=== PATIENT | male | born 1950 | race Caucasian/White ===

== ENCOUNTER 2018-10-10 19:15 | Inpatient (IN) | payer MEDICARE, OTHER ==
[~2018-10-10] VITALS: Ht 157.5 cm; Wt 99.8 kg
[2018-10-10] MEDS ORDERED: LISI-607 PO (20:04)
[2018-10-10] MEDS ORDERED: CLOP75TA15 PO (20:04)
[2018-10-10] MEDS ORDERED: CHLO25TA2 PO (20:04)
[2018-10-10] MEDS ORDERED: GLIM4TAB PO (20:04)
[2018-10-10] MEDS ORDERED: APIX5TAB PO (20:04)
[2018-10-10] MEDS ORDERED: OLOP5DRO EACHEYE (20:04)
[2018-10-10] MEDS ORDERED: METF-442 PO (20:04)
[2018-10-10] MEDS ORDERED: RISP0.5T5 PO (20:04)
[2018-10-10] MEDS ORDERED: MELA3TAB70 PO (20:04)
[2018-10-10] MEDS ORDERED: DIVA250T PO (20:04)
[2018-10-10] MEDS ORDERED: CARV6.252 PO (20:04)
[2018-10-10] MEDS ORDERED: ATOR20TA PO (20:04)
[2018-10-10] MEDS ORDERED: ASCO500T9 PO (20:04)
[2018-10-10 20:11] LABS: BASOPHILS % (AUTO) 0.4 % (0.0-2.0); EOSINOPHILS % (AUTO) 4.2 % (0.0-6.0); HEMATOCRIT 45 % (39-51); HEMOGLOBIN 15.4 g/dL (13.5-17.5); LYMPHOCYTES # (AUTO) 1.9 /CMM (0.8-4.8); LYMPHOCYTES % (AUTO) 25.9 % (20.0-44.0); MEAN CORPUSCULAR HGB CONC 35 g/dl (31.0-36.0); MEAN CORPUSCULAR VOLUME 92 fL (80-96); MONOCYTES # (AUTO) 0.5 /CMM (0.1-1.30); MONOCYTES % (AUTO) 7.6 % (2.0-12.0); NEUTROPHILS # (AUTO) 4.5 /CMM (1.8-8.9); NEUTROPHILS % (AUTO) 61.9 % (43.0-81.0); PLATELET COUNT (AUTO) 163 /CMM (150-450); RED BLOOD CELL COUNT(AUTO) 4.85 MIL/uL (4.5-6.0); WHITE BLOOD COUNT (AUTO) 7.3 K/uL (4.3-11.0)
--- NOTE | 2018-10-10 20:20 | NUR ---
ADMIT TO GPS ROOM 220 DX PSYCHOSIS, ADMITTING: MONY, PSYCH: YANCI
[2018-10-10 20:23] LABS: CALCIUM, SERUM 8.9 mg/dL (8.5-10.1); CARBON DIOXIDE 27 mmol/L (21-32); CHLORIDE 98 mmol/L (98-107); GLUCOSE 236 mg/dL (74-106); POTASSIUM 3.8 mmol/L (3.5-5.1); SODIUM SERUM 131 mmol/L (136-145); UREA NITROGEN, BLOOD 27 mg/dL (7-18)
--- NOTE | 2018-10-10 20:24 | NUR ---
BBPA FOR MEDICAL CLEARANCE FOR [facility]CH ADMISSION. PT ALREADY PLACED ON 5150 HOLD. PT C/O CHRONIC R SHOULDER PAIN. PT AAOX3, VSS. DENIES CP, SOB, DIZZINESS, N/V/D @THIS TIME. PT SEEN & EVAL'D BY FRANTZ JAFEF. PT CALM & COOPERATIVE @ THIS TIME. WILL CONT TO MONITOR.
[2018-10-10 20:29] LABS: APPEARANCE,URINE Clear (CLEAR); BILIRUBIN,URINE Negative (NEGATIVE); BLOOD, URINE Negative Ery/uL (NEGATIVE); COLOR,URINE Yellow (YELLOW); KETONES,URINE 15 (NEGATIVE); LEUKOCYTE ESTERASE ,URINE Negative (NEGATIVE); NITRITE, URINE Negative (NEGATIVE); PROTEIN,URINE Negative (NEGATIVE); UGLUCOSE 250 MG/DL mg/dL (NEGATIVE)
[2018-10-10 20:29] LABS: ACETAMINOPHEN 5 ug/ml (10-30); ALANINE AMINOTRANSFERASE 26 U/L (12-78); ALBUMIN 3.4 g/dL (3.4-5.0); ALCOHOL, BLOOD < 3 mg/dL (0-0); ALKALINE PHOSPHATASE 89 U/L (46-116); ASPARTATE AMINOTRANSFERASE 11 U/L (15-37); BILIRUBIN,DIRECT 0.1 mg/dL (0.0-0.2); BILIRUBIN,TOTAL 0.5 mg/dL (0.2-1.0); TOTAL PROTEIN, SERUM 6.8 g/dL (6.4-8.2)
[2018-10-10 20:30] LABS: SALICYLATE 1.5 mg/dL (2.8-20.0)
--- NOTE | 2018-10-10 20:54 | NUR ---
REPORT GIVEN TO JOY VALLEJO FOR CONT OF CARE.
[2018-10-10 21:13] VITALS: BP 139/69
[2018-10-10] MEDS ORDERED: MAG HYDROX/AL HYDROX/SIMETH 30 ML UDC PO PRN (21:30)
[2018-10-10] MEDS ORDERED: ACETAMINOPHEN 325 MG TABLET PO PRN (21:30)
[2018-10-10] MEDS ORDERED: MAGNESIUM HYDROXIDE 30 ML UDC PO PRN (21:30)
--- NOTE | 2018-10-11 05:31 | NUR ---
ADMITTED THIS 68 YEARS OLD MALE FROM [facility] DUE TI INCREASED AGITATIONS TOWARDS STAFF,AND AGGRESSIVE PATIENT DENIES ANY PAIN OR AGITATIONS AT THIS TIME ,CALM AND COOPERATIVE SKIN ASSESSMENT IS DONE SKIN IS CLEAR, AND INTACT, NO OPEN WOUND NOTED, VSS, NO RESPIRATORY DISTRESS NOTED ON ROOM AIR, BREATHING EVEN UNLABORED WILL CONTINUES TO MONITOR THE PATIENT EVERY 15 MINS FOR SAFETY AND FALL .
[2018-10-11] MEDS: BLOOD SUGAR DIAGNOSTIC 1 EACH STRIP IN SCH ×3 (06:00→18:08)
[2018-10-11 08:00] VITALS: BP 126/86
[2018-10-11 08:06] LABS: CREATININE 0.8 mg/dL (0.6-1.3)
[2018-10-11 08:07] LABS: CHOLESTEROL 123 mg/dL (<200); HDL CHOLESTEROL 47 mg/dL (40-60); LDL 71 mg/dL (0-99); TRIGLYCERIDES 95 mg/dL (30-150)
[2018-10-11] MEDS ORDERED: MULT-447 PO (08:10)
[2018-10-11] MEDS ORDERED: OXYM30MI BNOSTRILS (08:10)
--- NOTE | 2018-10-11 13:56 | NUR ---
CORDELIA contacted [facility] Address: [address], [place] [address] and spoke with Joseph, credit coordinator who stated pt was not on a bed hold due to pt not having Medical for assisted placement and thus has been accruing daily fees and has a co-payment due and stated he did not know if they would be able to take pt back. CORDELIA informed him that there was a Medicare return agreement signed by the facility before pt was transferred to [facility]. Joseph then stated that they would accept pt with medical clearance. CORDELIA informed him that once pt is stable for discharge CORDELIA will fax [phone] medical information and clearance to facility. Joseph agreed. Addendum: 10/11/18 at 1407 by EMIL STOREY Joseph also stated that pts family; kati Gupta [phone] and daughter were not involved with pts care.
--- NOTE | 2018-10-11 14:07 | NUR ---
SW contacted pts kati Gupta [phone] and left voicemail for callback.
--- NOTE | 2018-10-11 16:15 | NUR ---
SW received patient return agreement letter from [facility] sighned by long term care administrator Cirilo Patel [phone].
[2018-10-11 16:17] VITALS: BP 108/67
[2018-10-11] MEDS: risperiDONE 1 MG TABLET PO SCH (17:09)
[2018-10-11] MEDS: DIVALPROEX SODIUM 250 MG TABLET.DR PO SCH ×2 (17:10→21:02)
[2018-10-11] MEDS ORDERED: DEXTROSE 50%-WATER 50 ML DISP.SYRIN IV PRN (18:00)
[2018-10-11] MEDS: INSULIN REGULAR, HUMAN 100 UNIT/ML 3 ML VIAL SQ PRN (18:47)
[2018-10-11 20:22] VITALS: BP 130/74
[2018-10-11] MEDS: BLOOD SUGAR DIAGNOSTIC 1 EACH STRIP VI SCH (21:10)
[2018-10-11] MEDS: *INSULIN REGULAR(HUMULIN R)HUM 100 UNIT/ML VIAL SQ PRN (21:15)
[2018-10-11] MEDS: TEMAZEPAM 7.5 MG CAPSULE PO PRN (21:35)
[2018-10-12] MEDS: BLOOD SUGAR DIAGNOSTIC 1 EACH STRIP IN SCH ×2 (00:07→06:29)
[2018-10-12] MEDS: LORAZEPAM 0.5 MG TABLET PO PRN ×2 (04:24→21:58)
[2018-10-12] MEDS: INSULIN REGULAR, HUMAN 100 UNIT/ML 3 ML VIAL SQ PRN ×3 (06:40→18:10)
--- NOTE | 2018-10-12 07:27 | NUR ---
GPS-RN NOTES: PATIENT REFUSED BLOOD DRAW THIS MORNING, DESPITE EDUCATION. WILL TRY TO OFFER IT AGAIN LATER. ENDORSED TO THE ONCOMING SHIFT ACCORDINGLY.
[2018-10-12] MEDS: BLOOD SUGAR DIAGNOSTIC 1 EACH STRIP VI SCH ×4 (07:57→21:30)
[2018-10-12 08:00] VITALS: BP 119/57
--- NOTE | 2018-10-12 08:00 | NUR ---
NURSING NOTE: ACCMOISES DONE, BS 223, NO COVERAGE GIVEN DUE TO NIGHT RN ADMINISTERING 6 UNITS OF REGULAR INSULIN PER SLIDING SCALE THIS MORNING. WILL CONTINUE TO MONITOR.
--- NOTE | 2018-10-12 08:21 | NUR ---
WOUND CARE CONSULT: PT PRESENTS WITH DRY FLAKY SKIN TO LOWER LEGS, EDEMA TO RT LOWER LEG AND ITCHING REDNESS TO GROIN AND PERINEAL AREAS, PRESENT ON ADMISSION. DEFER TO MD FOR RT LOWER LEG EDEMA. RECOMMENDATIONS MADE FOR SKIN CARE AND PROTECTION. DISCUSSED WITH NURSING STAFF. PT IS CONTINENT AND AMBULATORY. CURRENT CHARLEY SCORE IS 20. WILL SEE PRN. MD IN AGREEMENT WITH PLAN OF CARE. Addendum: 10/12/18 at 0823 by ALVIN GOODRICH WNDNU Amended: Links added.
[2018-10-12] MEDS ORDERED: MINERAL OIL/PETROLATUM,WHITE 120 GM JAR TP PRN (08:30)
[2018-10-12] MEDS ORDERED: Z GUARD REMEDY 2 OZ OINT TP PRN (08:30)
[2018-10-12] MEDS: risperiDONE 1 MG TABLET PO SCH ×2 (08:57→16:18)
[2018-10-12] MEDS: DIVALPROEX SODIUM 250 MG TABLET.DR PO SCH ×3 (08:57→21:29)
[2018-10-12] MEDS: CLOTRIMAZOLE 1% 15 GM TUBE TP SCH ×2 (09:24→16:21)
--- NOTE | 2018-10-12 10:36 | NUR ---
INITIAL DISCHARGE PLAN: Patient will return to [facility] Address: [address] [facility], [place] [address] . CORDELIA spoke with Joseph, city wellness coordinator who stated pt was not on a bed hold due to pt not having Medical for [place] [facility] placement and thus has been accruing daily fees and has a co-payment due and stated he did not know if they would be able to take pt back. CORDELIA informed him that there was a Medicare return agreement signed by the order entry administrator before pt was transferred to [facility]. Joseph then stated that they would accept pt with medical clearance. CORDELIA will help form a safe and proper discharge in collaboration with facility and MD.
--- NOTE | 2018-10-12 10:37 | NUR ---
SW contacted pts kati Gupta [phone] and left voicemail for callback.
--- NOTE | 2018-10-12 13:34 | NUR ---
Group note: Pt attended a group session on 10/12/18 at 11AM discussing the topic of what they are looking forward to once they get discharged from the hospital. S: Pt stated that he is looking forward to being free once again. O: Pt was present during the group session and was cooperative. Pt appeared to be in a euthymic mood and presented with a calm affect. Pt appeared to be comfortable and spoke openly about his life. A: Pt understood that he is in this situation because he was not behaving appropriately but now he has to own up to it and make changes. Pt stated that he will be free eventually and then he will be able to know how he should and should not behave due to the consequences. P: Pt will continue milieu treatment and medication stabilization.
[2018-10-12 16:00] VITALS: BP 117/62
[2018-10-12 20:25] VITALS: BP 121/64
[2018-10-12] MEDS: *INSULIN REGULAR(HUMULIN R)HUM 100 UNIT/ML VIAL SQ PRN (21:51)
[2018-10-12] MEDS: TEMAZEPAM 7.5 MG CAPSULE PO PRN (22:08)
[2018-10-13 08:00] VITALS: BP 124/59
[2018-10-13] MEDS: BLOOD SUGAR DIAGNOSTIC 1 EACH STRIP VI SCH ×4 (08:20→21:10)
[2018-10-13] MEDS: DIVALPROEX SODIUM 250 MG TABLET.DR PO SCH ×3 (09:13→21:09)
[2018-10-13] MEDS: risperiDONE 1 MG TABLET PO SCH ×3 (09:28→17:24)
[2018-10-13] MEDS: CLOTRIMAZOLE 1% 15 GM TUBE TP SCH ×2 (09:29→17:24)
[2018-10-13] MEDS ORDERED: BENZTROPINE MESYLATE (1 MG) 1 MG TABLET PO SCH (11:30)
[2018-10-13] MEDS ORDERED: risperiDONE 0.25 MG TABLET PO SCH (11:30)
[2018-10-13] MEDS: BENZTROPINE MESYLATE (1 MG) 1 MG TABLET PO SCH ×2 (12:31→17:23)
[2018-10-13] MEDS: INSULIN REGULAR, HUMAN 100 UNIT/ML 3 ML VIAL SQ PRN (12:57)
[2018-10-13] MEDS ORDERED: busPIRone 5 MG TABLET PO SCH (13:00)
--- NOTE | 2018-10-13 13:04 | NUR ---
Patients blood sugar 473 patient given insulin 15 units as per order, Dr Méndez made aware new order Metformin 500mg po bid entered.
--- NOTE | 2018-10-13 13:08 | NUR ---
DR. CLARK ORDERED METFORMIN 500 MG PO TO THE PRIMARY NURSE AND ORDERED ENTERED.
[2018-10-13 16:06] VITALS: BP 111/61
[2018-10-13] MEDS: METFORMIN 500 MG TABLET PO SCH (17:24)
[2018-10-13] MEDS: *INSULIN REGULAR(HUMULIN R)HUM 100 UNIT/ML VIAL SQ PRN ×2 (17:27→21:10)
--- NOTE | 2018-10-13 18:47 | NUR ---
0800 ASSUMED CARE OF PATIENT. PATIENTS AM BLOOD SUGAR 198 PATIENT GIVEN 6 UNITS OF INSULIN ACCORDING TO SLIDING SCALE. PATIENTS BLOOD SUGAR [address] CLARK WAS INFORMED ABOUT THE OVER 400 BLOOD SUGAR ACCORDING TO PROTOCOL. RECHECKED THE BLOOD SUGAR AN HOUR LATER AND IT WAS 397. DR CLARK CALLED REGARDING THE NEW BLOOD SUGAR OF 397 AND THE INFORMATION THAT DIABETIC HOME MEDICATIONS HAVE NOT BEEN ACKNOWLEDGED. DR CLARK INFORMED. BEFORE DINNER BLOOD SUGAR IS NOW 276 AND THE FIRST DOSE OF METFORMIN 500MG PO HAS BEEN GIVEN. WILL CONTINUE TO MONITOR
--- NOTE | 2018-10-13 18:50 | NUR ---
PATIENT HAS BEEN DISPLAYING INAPPROPRIATE BEHAVIORS THROUGHOUT SHIFT. BEING AGGRESSIVE AND AGGITATED WITH HIS ROOM MATE. PATIENT ABLE TO REDIRECT.
[2018-10-13 20:00] VITALS: BP 127/77
[2018-10-13] MEDS: TEMAZEPAM 7.5 MG CAPSULE PO PRN (21:09)
[2018-10-14] MEDS: BLOOD SUGAR DIAGNOSTIC 1 EACH STRIP VI SCH ×4 (07:27→21:34)
[2018-10-14] MEDS: INSULIN REGULAR, HUMAN 100 UNIT/ML 3 ML VIAL SQ PRN ×3 (07:42→17:17)
[2018-10-14 08:00] VITALS: BP 121/59
[2018-10-14] MEDS: METFORMIN 500 MG TABLET PO SCH ×2 (08:11→16:28)
[2018-10-14] MEDS: risperiDONE 1 MG TABLET PO SCH ×3 (08:11→16:26)
[2018-10-14] MEDS: DIVALPROEX SODIUM 250 MG TABLET.DR PO SCH ×3 (08:11→21:34)
[2018-10-14] MEDS: BENZTROPINE MESYLATE (1 MG) 1 MG TABLET PO SCH ×2 (08:12→16:26)
[2018-10-14] MEDS: CLOTRIMAZOLE 1% 15 GM TUBE TP SCH ×2 (10:26→17:05)
[2018-10-14 16:00] VITALS: BP 125/67
[2018-10-14] MEDS: APIXABAN 5 MG TABLET PO SCH (16:26)
[2018-10-14] MEDS: CARVEDILOL 6.25 MG TABLET PO SCH (16:27)
[2018-10-14 20:00] VITALS: BP 106/60
[2018-10-14] MEDS: OLOPATADINE HCL 0.1% OPHTH BOTTLE EACHEYE SCH (20:35)
[2018-10-14] MEDS: ATORVASTATIN 10 MG TABLET PO SCH (21:33)
[2018-10-14] MEDS: *INSULIN REGULAR(HUMULIN R)HUM 100 UNIT/ML VIAL SQ PRN (21:38)
[2018-10-14] MEDS: LORAZEPAM 0.5 MG TABLET PO PRN (22:18)
[2018-10-15] MEDS: BLOOD SUGAR DIAGNOSTIC 1 EACH STRIP VI SCH ×4 (07:40→21:23)
[2018-10-15] MEDS: INSULIN REGULAR, HUMAN 100 UNIT/ML 3 ML VIAL SQ PRN ×3 (07:41→17:21)
[2018-10-15 08:00] VITALS: BP 124/55
[2018-10-15] MEDS: APIXABAN 5 MG TABLET PO SCH ×2 (08:52→16:17)
[2018-10-15] MEDS: risperiDONE 1 MG TABLET PO SCH ×3 (08:53→16:16)
[2018-10-15] MEDS: DIVALPROEX SODIUM 250 MG TABLET.DR PO SCH ×3 (08:53→21:00)
[2018-10-15] MEDS: METFORMIN 500 MG TABLET PO SCH ×2 (08:53→16:16)
[2018-10-15] MEDS: BENZTROPINE MESYLATE (1 MG) 1 MG TABLET PO SCH ×2 (08:53→16:15)
[2018-10-15] MEDS: LISINOPRIL (5MG) 5 MG TABLET PO SCH (08:54)
[2018-10-15] MEDS: CARVEDILOL 6.25 MG TABLET PO SCH ×2 (08:54→17:19)
[2018-10-15] MEDS: OLOPATADINE HCL 0.1% OPHTH BOTTLE EACHEYE SCH ×2 (08:55→16:17)
[2018-10-15] MEDS: MULTIVITAMIN/LUTEIN/MINERALS 1 TAB PO SCH (08:58)
[2018-10-15] MEDS: ASCORBIC ACID 500 MG TABLET PO SCH (08:59)
[2018-10-15] MEDS: GLIMEPIRIDE 4 MG TABLET PO SCH (08:59)
[2018-10-15] MEDS: CLOPIDOGREL BISULFATE 75 MG TABLET PO SCH (08:59)
[2018-10-15] MEDS: CLOTRIMAZOLE 1% 15 GM TUBE TP SCH ×2 (12:28→16:17)
[2018-10-15] MEDS: LORAZEPAM 0.5 MG TABLET PO PRN (12:49)
--- NOTE | 2018-10-15 12:51 | NUR ---
GPS RN NOTE: PT ANXIOUS ATIVAN GIVEN PER ORDER WILL CONTINUE MONITORING.
[2018-10-15 16:00] VITALS: BP 136/80
[2018-10-15 20:00] VITALS: BP 146/72
[2018-10-15] MEDS: ATORVASTATIN 10 MG TABLET PO SCH (21:00)
[2018-10-15] MEDS: *INSULIN REGULAR(HUMULIN R)HUM 100 UNIT/ML VIAL SQ PRN (21:28)
[2018-10-16] MEDS: LORAZEPAM 0.5 MG TABLET PO PRN (04:29)
[2018-10-16] MEDS: BLOOD SUGAR DIAGNOSTIC 1 EACH STRIP VI SCH ×4 (07:47→21:29)
[2018-10-16] MEDS: INSULIN REGULAR, HUMAN 100 UNIT/ML 3 ML VIAL SQ PRN ×3 (07:52→17:17)
[2018-10-16 08:00] VITALS: BP 110/63
[2018-10-16] MEDS: OLOPATADINE HCL 0.1% OPHTH BOTTLE EACHEYE SCH ×2 (08:19→16:11)
[2018-10-16] MEDS: APIXABAN 5 MG TABLET PO SCH ×2 (08:21→16:10)
[2018-10-16] MEDS: BENZTROPINE MESYLATE (1 MG) 1 MG TABLET PO SCH ×2 (08:21→16:09)
[2018-10-16] MEDS: MULTIVITAMIN/LUTEIN/MINERALS 1 TAB PO SCH (08:22)
[2018-10-16] MEDS: DIVALPROEX SODIUM 250 MG TABLET.DR PO SCH ×3 (08:22→21:28)
[2018-10-16] MEDS: CLOPIDOGREL BISULFATE 75 MG TABLET PO SCH (08:22)
[2018-10-16] MEDS: METFORMIN 500 MG TABLET PO SCH ×2 (08:23→16:09)
[2018-10-16] MEDS: ASCORBIC ACID 500 MG TABLET PO SCH (08:23)
[2018-10-16] MEDS: risperiDONE 1 MG TABLET PO SCH ×4 (08:24→16:20)
[2018-10-16] MEDS: GLIMEPIRIDE 4 MG TABLET PO SCH (08:24)
[2018-10-16] MEDS: LISINOPRIL (5MG) 5 MG TABLET PO SCH (08:34)
[2018-10-16] MEDS: CARVEDILOL 6.25 MG TABLET PO SCH ×2 (08:34→16:19)
[2018-10-16] MEDS: CLOTRIMAZOLE 1% 15 GM TUBE TP SCH ×2 (08:37→17:14)
[2018-10-16 16:00] VITALS: BP 94/54
[2018-10-16 20:23] VITALS: BP 105/54
[2018-10-16] MEDS: ATORVASTATIN 10 MG TABLET PO SCH (21:27)
[2018-10-16] MEDS: *INSULIN REGULAR(HUMULIN R)HUM 100 UNIT/ML VIAL SQ PRN (21:33)
[2018-10-17 07:24] LABS: CALCIUM, SERUM 8.6 mg/dL (8.5-10.1); CREATININE 0.7 mg/dL (0.6-1.3); POTASSIUM 3.9 mmol/L (3.5-5.1)
[2018-10-17] MEDS: BLOOD SUGAR DIAGNOSTIC 1 EACH STRIP VI SCH ×4 (07:30→21:24)
[2018-10-17 08:00] VITALS: BP 123/66
[2018-10-17] MEDS: OLOPATADINE HCL 0.1% OPHTH BOTTLE EACHEYE SCH ×2 (09:00→17:00)
[2018-10-17] MEDS: APIXABAN 5 MG TABLET PO SCH ×2 (09:00→17:38)
[2018-10-17] MEDS: CLOTRIMAZOLE 1% 15 GM TUBE TP SCH ×2 (09:00→17:00)
[2018-10-17] MEDS: GLIMEPIRIDE 4 MG TABLET PO SCH (09:00)
[2018-10-17] MEDS: METFORMIN 500 MG TABLET PO SCH ×2 (09:00→17:29)
[2018-10-17] MEDS: INSULIN REGULAR, HUMAN 100 UNIT/ML 3 ML VIAL SQ PRN ×3 (09:12→17:51)
[2018-10-17] MEDS: CLOPIDOGREL BISULFATE 75 MG TABLET PO SCH (09:13)
[2018-10-17] MEDS: LISINOPRIL (5MG) 5 MG TABLET PO SCH (09:13)
[2018-10-17] MEDS: ASCORBIC ACID 500 MG TABLET PO SCH (09:13)
[2018-10-17] MEDS: DIVALPROEX SODIUM 250 MG TABLET.DR PO SCH ×3 (09:14→21:23)
[2018-10-17] MEDS: MULTIVITAMIN/LUTEIN/MINERALS 1 TAB PO SCH (09:14)
[2018-10-17] MEDS: BENZTROPINE MESYLATE (1 MG) 1 MG TABLET PO SCH ×2 (09:14→17:28)
[2018-10-17] MEDS: risperiDONE 1 MG TABLET PO SCH ×3 (09:14→17:38)
[2018-10-17] MEDS: CARVEDILOL 6.25 MG TABLET PO SCH ×2 (09:14→17:00)
[2018-10-17 16:00] VITALS: BP 110/65
[2018-10-17 20:00] VITALS: BP 101/66
[2018-10-17] MEDS: ATORVASTATIN 10 MG TABLET PO SCH (21:23)
[2018-10-17] MEDS: *INSULIN REGULAR(HUMULIN R)HUM 100 UNIT/ML VIAL SQ PRN (21:29)
[2018-10-17] MEDS: TEMAZEPAM 7.5 MG CAPSULE PO PRN (22:42)
[2018-10-17] MEDS: LORAZEPAM 0.5 MG TABLET PO PRN (23:46)
[2018-10-18] MEDS: BLOOD SUGAR DIAGNOSTIC 1 EACH STRIP VI SCH ×4 (07:30→21:33)
[2018-10-18 08:00] VITALS: BP 135/98
[2018-10-18] MEDS: OLOPATADINE HCL 0.1% OPHTH BOTTLE EACHEYE SCH ×2 (09:00→17:58)
[2018-10-18] MEDS: CLOTRIMAZOLE 1% 15 GM TUBE TP SCH ×2 (09:00→17:59)
[2018-10-18] MEDS: ASCORBIC ACID 500 MG TABLET PO SCH (09:31)
[2018-10-18] MEDS: METFORMIN 500 MG TABLET PO SCH ×2 (09:31→17:57)
[2018-10-18] MEDS: GLIMEPIRIDE 4 MG TABLET PO SCH (09:31)
[2018-10-18] MEDS: CLOPIDOGREL BISULFATE 75 MG TABLET PO SCH (09:31)
[2018-10-18] MEDS: DIVALPROEX SODIUM 250 MG TABLET.DR PO SCH ×4 (09:32→21:33)
[2018-10-18] MEDS: CARVEDILOL 6.25 MG TABLET PO SCH ×3 (09:32→17:57)
[2018-10-18] MEDS: BENZTROPINE MESYLATE (1 MG) 1 MG TABLET PO SCH ×3 (09:32→17:56)
[2018-10-18] MEDS: LISINOPRIL (5MG) 5 MG TABLET PO SCH (09:33)
[2018-10-18] MEDS: APIXABAN 5 MG TABLET PO SCH ×3 (09:33→17:58)
[2018-10-18] MEDS: risperiDONE 1 MG TABLET PO SCH ×3 (09:46→17:00)
[2018-10-18] MEDS: MULTIVITAMIN/LUTEIN/MINERALS 1 TAB PO SCH (09:46)
--- NOTE | 2018-10-18 11:44 | NUR ---
CORDELIA contacted [facility] Address: [address] [place] [address] and spoke with Anneliese, borough coordinator and informed her pt was being discharged back tho the facility tomorrow Wednesday10/19/18. Val agreed and requested clinical information. CORDELIA faxed clinicals to [phone].
[2018-10-18] MEDS: INSULIN REGULAR, HUMAN 100 UNIT/ML 3 ML VIAL SQ PRN ×2 (12:58→17:40)
[2018-10-18 16:00] VITALS: BP 109/59
[2018-10-18 20:54] VITALS: BP 104/59
[2018-10-18] MEDS: ATORVASTATIN 10 MG TABLET PO SCH (21:33)
[2018-10-18] MEDS: *INSULIN REGULAR(HUMULIN R)HUM 100 UNIT/ML VIAL SQ PRN (21:39)
[2018-10-19] MEDS: TEMAZEPAM 7.5 MG CAPSULE PO PRN (01:15)
[2018-10-19] MEDS: BLOOD SUGAR DIAGNOSTIC 1 EACH STRIP VI SCH (07:44)
[2018-10-19 08:00] VITALS: BP 107/53
[2018-10-19] MEDS: CLOPIDOGREL BISULFATE 75 MG TABLET PO SCH (08:07)
[2018-10-19] MEDS: DIVALPROEX SODIUM 250 MG TABLET.DR PO SCH (08:07)
[2018-10-19] MEDS: METFORMIN 500 MG TABLET PO SCH (08:07)
[2018-10-19] MEDS: GLIMEPIRIDE 4 MG TABLET PO SCH (08:07)
[2018-10-19] MEDS: BENZTROPINE MESYLATE (1 MG) 1 MG TABLET PO SCH (08:07)
[2018-10-19] MEDS: MULTIVITAMIN/LUTEIN/MINERALS 1 TAB PO SCH (08:07)
[2018-10-19] MEDS: LISINOPRIL (5MG) 5 MG TABLET PO SCH ×2 (08:07→09:00)
[2018-10-19] MEDS: CARVEDILOL 6.25 MG TABLET PO SCH (08:08)
[2018-10-19] MEDS: ASCORBIC ACID 500 MG TABLET PO SCH (08:08)
[2018-10-19] MEDS: risperiDONE 1 MG TABLET PO SCH (08:08)
[2018-10-19] MEDS: OLOPATADINE HCL 0.1% OPHTH BOTTLE EACHEYE SCH (08:12)
[2018-10-19] MEDS: APIXABAN 5 MG TABLET PO SCH (08:12)
[2018-10-19] MEDS: CLOTRIMAZOLE 1% 15 GM TUBE TP SCH (08:17)
[2018-10-19 09:00] VITALS: BP 107/53
--- NOTE | 2018-10-19 12:05 | NUR ---
NURSING DISCHARGE NOTE: PT WAS DISCHARGED TODAY AT 1200 TO [facility] ([facility]) [address] [place] [address]. VIA AMBULANCE. PT LEFT THE UNIT VIA GURNEY ACCOMPANIED BY 2 APPLIED COMPUTER SCIENCE PROFESSOR. PT IS A&OX3, CALM, COOPERATIVE, LABILE, DEMANDING AT TIMES, REDIRECTABLE, DENIES SI/HI AT THE TIME OF DISCHARGE. PT WAS COOPERATIVE WITH DISCHARGE PROCESS AND HAS SIGNED ALL PAPERWORK. PT REFUSED SKIN ASSESSMENT AND PICTURES TO BE TAKEN. VS: 124/66, 74, 18, 95%RA, 0/10 PAIN. NO S/S OF DISTRESS NOTED. DISCHARGE ORDER WAS GIVEN BY DR. PETE AND PT IS MEDICALLY STABLE FOR DISCHARGE PER DR. PACHECO. REPORT WAS GIVEN TO JOY MARTINEZ AT [phone]. ALL BELONGINGS WERE RETURNED TO PT AND PT HAS SIGNED THE PAPERWORK.
--- NOTE | 2018-10-19 13:54 | NUR ---
Discharge Note: Pt discharged on Wednesday10/19/18 back to [facility] ([facility]). Pt discharged at 11:30am via [facility] trip #[id number]. Pt has no family to notify. Upon discharge, the pt appeared to be in a euthymic mood and presented with a calm affect. Pt stated that he is excited to return to the facility because he made friends there that he misses. Pt denied both suicidal and homicidal ideation as well as visual and auditory hallucinations. Pt will be under the care of his psychiatrist, Dr. Vitaly Mcfadden, located at [address] [place] [address] [phone] and his mobile sales technician, Dr. Carlton Trujillo, [place] [address] [place] [address]; .
== END 2018-10-19 12:00 | DRG 885 ==
LOC: ER 19:17 → GPS 20:26
PROVIDERS: ADMIT Psychiatry & Neurology Psychiatry; ATTEND Psychiatry & Neurology Psychiatry
DX: F29 Unspecified psychosis not due to a substance or known physiological condition (principal); N17.9 Acute kidney failure, unspecified; E11.65 Type 2 diabetes mellitus with hyperglycemia; E87.1 Hypo-osmolality and hyponatremia; F03.91 Unspecified dementia, unspecified severity, with behavioral disturbance; I10 Essential (primary) hypertension; F39 Unspecified mood [affective] disorder; E11.51 Type 2 diabetes mellitus with diabetic peripheral angiopathy without gangrene; E11.610 Type 2 diabetes mellitus with diabetic neuropathic arthropathy; Z79.84 Long term (current) use of oral hypoglycemic drugs; E86.1 Hypovolemia
CPT/HCPCS: 36415; 80048-TC; 80061-TC; 80076-TC; 80305; 81000-TC; 82565-TC; 82962-TC; 84484-TC; 85025-TC; 87081-TC; G0480; J1815

== ENCOUNTER 2018-11-29 15:58 | Emergency (ER) | payer MEDICARE, MEDICAID ==
[~2018-11-29] VITALS: Ht 152.4 cm; Wt 83.9 kg
[~2018-11-29 15:58] MED LIST: APIX5TAB PO; ASCO500T9 PO; ATOR20TA PO; CARV6.252 PO; CHLO25TA2 PO; CLOP75TA15 PO; GLIM4TAB PO; LISI-607 PO; METF-442 PO; MULT-447 PO; OLOP5DRO EACHEYE; OXYM30MI BNOSTRILS; RISP0.5T5 PO
--- NOTE | 2018-11-29 16:27 | NUR ---
MARILYN, FROM SNF INCREASE AGITATION AND NOT TAKING HIS MEDS SINCE LAST NIGHT, TO ER BED 14, HOOKED TO MONITOR. AWAITING MD ORTEGA
--- NOTE | 2018-11-29 16:28 | NUR ---
SEEN BY FRANTZ MESSINA
[2018-11-29 16:43] LABS: BASOPHILS % (AUTO) 0.5 % (0.0-2.0); EOSINOPHILS % (AUTO) 2.8 % (0.0-6.0); HEMATOCRIT 47 % (39-51); LYMPHOCYTES # (AUTO) 1.8 /CMM (0.8-4.8); LYMPHOCYTES % (AUTO) 29.7 % (20.0-44.0); MEAN CORPUSCULAR HGB CONC 34 g/dl (31.0-36.0); MEAN CORPUSCULAR VOLUME 91 fL (80-96); MONOCYTES # (AUTO) 0.5 /CMM (0.1-1.30); MONOCYTES % (AUTO) 8.6 % (2.0-12.0); NEUTROPHILS # (AUTO) 3.6 /CMM (1.8-8.9); NEUTROPHILS % (AUTO) 58.4 % (43.0-81.0); PLATELET COUNT (AUTO) 173 /CMM (150-450); RED BLOOD CELL COUNT(AUTO) 5.12 MIL/uL (4.5-6.0); WHITE BLOOD COUNT (AUTO) 6.1 K/uL (4.3-11.0)
--- NOTE | 2018-11-29 16:50 | NUR ---
PER FRANTZ MESSINA, PT IS MEDICALLY CLEAR TO GO BACK TO [facility]
[2018-11-29 16:54] LABS: CALCIUM, SERUM 8.9 mg/dL (8.5-10.1); CARBON DIOXIDE 26 mmol/L (21-32); CHLORIDE 101 mmol/L (98-107); CREATININE 0.9 mg/dL (0.6-1.3); GLUCOSE 261 mg/dL (74-106); POTASSIUM 4.2 mmol/L (3.5-5.1); SODIUM SERUM 135 mmol/L (136-145); UREA NITROGEN, BLOOD 16 mg/dL (7-18)
[2018-11-29 17:03] LABS: ALANINE AMINOTRANSFERASE 16 U/L (12-78); ALBUMIN 3.6 g/dL (3.4-5.0); ALKALINE PHOSPHATASE 89 U/L (46-116); ASPARTATE AMINOTRANSFERASE 11 U/L (15-37); BILIRUBIN,DIRECT 0.1 mg/dL (0.0-0.2); BILIRUBIN,TOTAL 0.6 mg/dL (0.2-1.0); TOTAL PROTEIN, SERUM 7.2 g/dL (6.4-8.2)
[2018-11-29 17:04] LABS: ACETAMINOPHEN < 2 ug/ml (10-30); ALCOHOL, BLOOD < 3 mg/dL (0-0); SALICYLATE < 2.8 mg/dL (2.8-20.0)
--- NOTE | 2018-11-29 17:04 | NUR ---
CALLED [facility] FOR TRANSPORT ETA 1999 WAS GIVEN. TRIP#[id number]
--- NOTE | 2018-11-29 17:32 | NUR ---
PT IN WHEECHAIR, NO AGITATION NOTED. HOOKED TO MONITOR, WILL CONTINUE TO MONITOR
--- NOTE | 2018-11-29 19:57 | NUR ---
REPORT GIVEN TO FLOYD HAMILTON OF [facility]
--- NOTE | 2018-11-29 20:52 | NUR ---
Patient discharged to AMBULNZ UNIT 328 in stable condition. Will be brought to [facility], Written and verbal after care instructions given. Patient verbalizes understanding of instruction.
[2018-11-29 20:55] VITALS: BP 122/81
== END 2018-11-29 20:58 ==
LOC: ER 16:07
DX: R60.0 Localized edema (principal); I10 Essential (primary) hypertension; E78.5 Hyperlipidemia, unspecified; E11.9 Type 2 diabetes mellitus without complications; F25.9 Schizoaffective disorder, unspecified; F31.9 Bipolar disorder, unspecified; Z86.59 Personal history of other mental and behavioral disorders
CPT/HCPCS: 36415; 80048; 80076; 80307; 85025; 99285; A4606; G0480

== ENCOUNTER 2020-11-23 19:45 | Inpatient (IN) | payer MEDICARE, OTHER ==
[~2020-11-23] VITALS: Ht 177.8 cm; Wt 102.1 kg
[~2020-11-23 19:45] MED LIST changes: +ASCO-352 PO; -ASCO500T9 PO; -LISI-607 PO; +LISI-768 PO
--- NOTE | 2020-11-23 19:47 | NUR ---
TO ER BED 14 BIBPA FROM [facility] FOR MEDICAL CLEARANCE FOR GEROPSYCHADMISSION. PT ON 5150 HOLD. PT CALM AND COOPERATIVE AT THIS TIME. PT AAOX3, NO ACUTE DISTRESS NOTED, RESP EVEN AND UNLABORED. PLACE PT ON HOSPITAL GOWN, ALL BELONGINGS REMOVED FROM ROOM. 1:1 SITTER AT BEDSIDE FOR PT SAFETY. PT ON 5150 HOLD PTS. PT STATES "I GOT UPSET BECAUSE THE NURSE AT THE FACILITY PUT THE BED UP TOO HIGH AND I DIDN'T LIKE IT BECAUSE IM CLAUSTROPHOBIC AND SHE KEPT TELLING ME IT'S OK BUT I WASN'T OK WITH IT."
--- NOTE | 2020-11-23 20:08 | NUR ---
MARKETING EFFECTIVENESS MANAGER AT BEDSIDE FOR BLOOD DRAW.
--- NOTE | 2020-11-23 20:22 | NUR ---
COVID SWAB COLLECTED AND SENT TO LAB.
[2020-11-23 20:26] LABS: BASOPHILS % (AUTO) 0.4 % (0.0-2.0); EOSINOPHILS % (AUTO) 2.4 % (0.0-6.0); HEMATOCRIT 47 % (39-51); HEMOGLOBIN 15.7 g/dL (13.5-17.5); LYMPHOCYTES # (AUTO) 2.1 /CMM (0.8-4.8); LYMPHOCYTES % (AUTO) 35.4 % (20.0-44.0); MEAN CORPUSCULAR HGB CONC 33 g/dl (31.0-36.0); MEAN CORPUSCULAR VOLUME 94 fL (80-96); MONOCYTES # (AUTO) 0.5 /CMM (0.1-1.30); MONOCYTES % (AUTO) 8.1 % (2.0-12.0); NEUTROPHILS # (AUTO) 3.2 /CMM (1.8-8.9); NEUTROPHILS % (AUTO) 53.7 % (43.0-81.0); PLATELET COUNT (AUTO) 163 /CMM (150-450); RED BLOOD CELL COUNT(AUTO) 5.03 MIL/uL (4.5-6.0)
[2020-11-23 20:39] LABS: ALANINE AMINOTRANSFERASE 12 U/L (12-78); ALBUMIN 3.3 g/dL (3.4-5.0); ALCOHOL, BLOOD < 3 mg/dL (0-0); ALKALINE PHOSPHATASE 87 U/L (46-116); ASPARTATE AMINOTRANSFERASE 9 U/L (15-37); BILIRUBIN,DIRECT 0.1 mg/dL (0.0-0.2); BILIRUBIN,TOTAL 0.4 mg/dL (0.2-1.0); CARBON DIOXIDE 26 mmol/L (21-32); CHLORIDE 104 mmol/L (98-107); GLUCOSE 247 mg/dL (74-106); POTASSIUM 4.6 mmol/L (3.5-5.1); SODIUM SERUM 139 mmol/L (136-145); TOTAL PROTEIN, SERUM 7.2 g/dL (6.4-8.2); UREA NITROGEN, BLOOD 21 mg/dL (7-18)
[2020-11-23 20:49] LABS: ACETAMINOPHEN < 2 ug/ml (10-30)
[2020-11-23 20:59] LABS: BILIRUBIN,URINE NEGATIVE (NEGATIVE); COLOR,URINE YELLOW (YELLOW); LEUKOCYTE ESTERASE ,URINE NEGATIVE (NEGATIVE); NITRITE, URINE NEGATIVE (NEGATIVE); PROTEIN,URINE NEGATIVE (NEGATIVE); UGLUCOSE >=1000 mg/dL (NEGATIVE); UROBILINOGEN,URINE 0.2 EU/dL (0.2)
--- NOTE | 2020-11-23 21:01 | NUR ---
[facility] 213-B
--- NOTE | 2020-11-23 21:24 | NUR ---
LAB CALLED REGARDING NEGATIVE COVID RESULT.
--- NOTE | 2020-11-23 21:29 | NUR ---
REPORT CALLED TO [facility]. WILL TRANSPORT PT TO ROOM 213.
[2020-11-23 21:30] LABS: BACTERIA,URINE None seen /HPF (None Seen); RBC,URINE 0-2 /HPF (0-2); SQUAMOUS EPITHELIAL CELL,UR 0-2 /HPF (None Seen); WBC,URINE 0-2 /HPF (0-3)
--- NOTE | 2020-11-23 22:18 | NUR ---
PT TRANSFERRED TO GPS VIA [facility] IN STABLE CONDITION
[2020-11-23 22:30] VITALS: BP 132/72
[2020-11-23] MEDS ORDERED: MAG HYDROX/AL HYDROX/SIMETH 30 ML UDC PO PRN (22:30)
[2020-11-23] MEDS ORDERED: BLOOD SUGAR DIAGNOSTIC 1 EACH STRIP IN ONE (22:30)
[2020-11-23] MEDS ORDERED: MAGNESIUM HYDROXIDE 30 ML UDC PO PRN (22:30)
--- NOTE | 2020-11-23 23:00 | NUR ---
GPS RN-ADMISSION NOTES: ADMITTED A 70-YR OLD WHITE MALE, FROM [facility], ADMITTED ON 5150 HOLD FOR DTO AND GD. PER HOLD, PATIENT WAS REPEATING INFORMATION CONTINUOUSLY. HE WAS UNABLE TO REMEMBER SPECIFIC INCIDENT OF WHAT OCCURRED.JOY MARTINEZ INFORMED CLINICIAN PATIENT WAS AGGRESSIVE, PULLING THINGS OFF THE BED, ASSAULTIVE TOWARDS ROOMMATE AND NOT COMPLYING WITH DIRECTIONS. PATIENT HAS HX OF DEPRESSION, ANXIETY AND SCHIZOAFFECTIVE DISORDER. UPON FACE TO FACE ASSESSMENT AFTER ADMISSION AT [facility] GPS UNIT, PATIENT IS A& O X 1-2, CONFUSED, FORGETFUL, DISORGANIZED, DISHEVELED, RESTRICTED AND UNABLE TO REMEMBER SPECIFIC INCIDENT OF WHAT HAPPENED & WHY HE IS ADMITTED TO GPS UNIT. CALM & COOPERATIVE AT THIS TIME. PT STATED," I GET NERVOUS SOMETIMES, BUT I WAS NOT AGGRESSIVE AT ALL." PT WAS ADVISED OF HIS HOLD. PT'S RIGHTS HANDBOOK AND A GUIDE TO PRESCRIPTION MEDICATIONS GIVEN. IN NO APPARENT DISTRESS NOTED. PER PATIENT," I CAN'T WALK BUT I CAN USE WHEELCHAIR & TRANSFER FROM BED TO CHAIR & CHAIR TO BED. PT EVAL ORDERED. BELONGINGS WERE INVENTORIED AND CHECKED FOR CONTRABAND. PT. IS UNDER THE PSYCHIATRIC CARE OF DR. LUCAS, ORDERS OBTAINED, AND UNDER THE MEDICAL CARE OF SARAH KUMAR. MED RECON DONE. PT'S BS LEVEL IS 195 MG/DL BUT PT. REFUSED TO TAKE ANY INSULIN AT THIS TIME & REFUSED TO EAT WELL. PT. REFUSED FLU & PNEUMO VACCINE WHEN OFFERED, PER PATIENT HE RECEIVED IT BUT FORGOT WHEN. SKIN BODY ASSESSMENT DONE. WOUND CARE CONSULT TRIGGERED. DENIES PAIN/DISCOMFORT AT THIS TIME. SAFETY PRECAUTIONS IN PLACE. BED ALARM ON. BED LOCKED AND IN LOWEST POSITION. SIDE RAILS UP X2. WILL CONTINUE TO MONITOR Q15 MINS ROUNDS FOR SAFETY AND BEHAVIOR.
--- NOTE | 2020-11-24 02:04 | NUR ---
RN NOTE PATIENT IS SLEEPING COMFORTABLY AT THIS TIME.
--- NOTE | 2020-11-24 06:42 | NUR ---
RN NOTE: FAMILY NOTIFIED PER PATIENT REQUEST, CALLED PT'S SON MIGUEL ([place]) AT [phone] & LEFT A MESSAGE ABOUT PATIENT'S ADMISSION AT GPS UNIT & LEFT UNIT PHONE NUMBER FOR MIGUEL IN CASE HE WOULD LIKE TO CALL TO GET UPDATES ABOUT PATIENT'S HEALTH CONDITION.
[2020-11-24] MEDS: GLIMEPIRIDE 4 MG TABLET PO SCH (07:51)
[2020-11-24 08:00] VITALS: BP 138/77
[2020-11-24 08:43] LABS: CREATININE 0.9 mg/dL (0.6-1.3)
[2020-11-24] MEDS: METFORMIN 500 MG TABLET PO SCH ×2 (08:45→17:11)
[2020-11-24] MEDS: CLOPIDOGREL BISULFATE 75 MG TABLET PO SCH (09:02)
[2020-11-24] MEDS: ASCORBIC ACID 500 MG TABLET PO SCH (09:02)
[2020-11-24] MEDS: MULTIVITAMINS,THERAGRAN 1 UDTAB TABLET PO SCH (09:02)
[2020-11-24] MEDS: LISINOPRIL (5MG) 5 MG TABLET PO SCH (09:03)
[2020-11-24] MEDS: CARVEDILOL 6.25 MG TABLET PO SCH ×2 (09:03→16:29)
[2020-11-24] MEDS: APIXABAN 5 MG TABLET PO SCH ×2 (09:04→16:30)
[2020-11-24] MEDS: OLOPATADINE HCL 0.1% OPHTH BOTTLE EACHEYE SCH ×2 (09:05→16:48)
[2020-11-24] MEDS: LORAZEPAM 0.5 MG TABLET PO PRN (13:10)
--- NOTE | 2020-11-24 13:12 | NUR ---
RN-CO: ATIVAN PO 0.5 MG GIEN FOR AGITATION.
[2020-11-24 16:00] VITALS: BP_SYST 146; BP_DIAS 68; BP_DIAS 79
--- NOTE | 2020-11-24 16:48 | NUR ---
RN-CO: EYE DROPS WAS REFUSED BY THE PATIENT, HE STATED " I DON'T WANT YOU TO PUT ANYTHING ON MY EYES." ENCOURAGED AND STATED THE BENEFITS BUT STILL REFUSED.
[2020-11-24 19:59] VITALS: BP 104/47
[2020-11-24] MEDS: Z GUARD REMEDY 2 OZ OINT TP SCH (21:00)
[2020-11-24] MEDS: ATORVASTATIN 10 MG TABLET PO SCH (21:00)
[2020-11-24] MEDS: TEMAZEPAM 7.5 MG CAPSULE PO PRN (22:03)
--- NOTE | 2020-11-24 22:03 | NUR ---
GPS-RN NOTE: INSOMNIA PATIENT UNABLE TO SLEEP. ADMINISTERED RESTORIL 7.5MG PO ORDERED. WILL CONTINUE TO MONITOR FOR PATIENT'S SAFETY.
[2020-11-24] MEDS: DIVALPROEX SODIUM 250 MG TABLET.DR PO SCH (23:33)
[2020-11-24] MEDS: risperiDONE 1 MG TABLET PO SCH (23:34)
[2020-11-25 08:00] VITALS: BP 118/74
[2020-11-25] MEDS: METFORMIN 500 MG TABLET PO SCH ×2 (09:29→17:00)
[2020-11-25] MEDS: ASCORBIC ACID 500 MG TABLET PO SCH (09:29)
[2020-11-25] MEDS: CLOPIDOGREL BISULFATE 75 MG TABLET PO SCH (09:29)
[2020-11-25] MEDS: CARVEDILOL 6.25 MG TABLET PO SCH ×2 (09:29→17:01)
[2020-11-25] MEDS: risperiDONE 1 MG TABLET PO SCH ×2 (09:29→21:07)
[2020-11-25] MEDS: LORAZEPAM 0.5 MG TABLET PO PRN (09:29)
[2020-11-25] MEDS: LISINOPRIL (5MG) 5 MG TABLET PO SCH (09:29)
[2020-11-25] MEDS: DIVALPROEX SODIUM 250 MG TABLET.DR PO SCH ×2 (09:29→21:03)
[2020-11-25] MEDS: MULTIVITAMINS,THERAGRAN 1 UDTAB TABLET PO SCH (09:29)
[2020-11-25] MEDS: APIXABAN 5 MG TABLET PO SCH ×2 (09:30→17:04)
[2020-11-25] MEDS: Z GUARD REMEDY 2 OZ OINT TP SCH ×2 (09:31→21:05)
[2020-11-25] MEDS: GLIMEPIRIDE 4 MG TABLET PO SCH (09:35)
[2020-11-25] MEDS: OLOPATADINE HCL 0.1% OPHTH BOTTLE EACHEYE SCH ×2 (09:35→17:00)
--- NOTE | 2020-11-25 11:45 | NUR ---
Social Service phone call: SW spoke to the son (Alonso Bates, )via phone at 11:45 am to identify support system for the pt. The son reports wanting to have the father return back to current living arrangements at (Alonso Bates, ), [facility] ,[address] [place] [address] once the pt is medically discharged from the hospital. The son (Alonso Bates, ) reports currently resides in [place] and is unable to meet the care needs for the father.
--- NOTE | 2020-11-25 12:13 | NUR ---
Social service phone call: CORDELIA spoke to Scarlett (planner internship), [facility] , [address] [place] [address], via phone at 12:05 pm regarding the pt to return back to the facility. Scarlett (planner internship) states pt is allowed to return back to the facility after medically discharged from the hospital
--- NOTE | 2020-11-25 12:55 | NUR ---
Initial Discharge Plan: Pt currently resides at [facility] [address] [place] [address] , . Per pt, he would like to return to the same living facility. CORDELIA spoke to Scarlett (analysis engineer) and will accept the pt back once pt is medically discharged. CORDELIA will work the pt and the MD appropriate discharged planning. CORDELIA will form a safe and proper discharge.
[2020-11-25 16:00] VITALS: BP 147/89
--- NOTE | 2020-11-25 17:52 | NUR ---
RN NOTES PATIENT RESTING IN BED, ALL NEEDS MET, COMPLIANT WITH ALL MEDICATIONS DURING DAY SHIFT. CALM AND COOPERATIVE
[2020-11-25 20:37] VITALS: BP 103/62
[2020-11-25] MEDS: ATORVASTATIN 10 MG TABLET PO SCH (21:17)
[2020-11-25] MEDS: TEMAZEPAM 7.5 MG CAPSULE PO PRN (22:44)
--- NOTE | 2020-11-25 22:45 | NUR ---
RN NOTE: INSOMNIA PATIENT VERBALIZED C/O SLEEPLESSNESS & REQUESTED TO TAKE SLEEPING MEDICINE. PRN RESTORIL 7.5 MG 1 CAP PO ADMINISTERED. WILL CONTINUE TO MONITOR FOR ANY MUKUL.
[2020-11-25] MEDS: ACETAMINOPHEN 325 MG TABLET PO PRN (22:51)
--- NOTE | 2020-11-25 22:53 | NUR ---
RN NOTE: RIGHT FOOT PAIN PATIENT C/O RIGHT FOOT PAIN 11/27 & REQUESTED TO TAKE PAIN MEDICINE AT THIS TIME. PRN TYLENOL 650 MG PO GIVEN. WILL CONTINUE TO MONITOR. UNABLE TO SCAN BAR CODE OF TYLENOL.
[2020-11-26 08:00] VITALS: BP 132/60
[2020-11-26] MEDS: DIVALPROEX SODIUM 250 MG TABLET.DR PO SCH ×2 (08:04→21:24)
[2020-11-26] MEDS: CLOPIDOGREL BISULFATE 75 MG TABLET PO SCH (08:04)
[2020-11-26] MEDS: MULTIVITAMINS,THERAGRAN 1 UDTAB TABLET PO SCH (08:04)
[2020-11-26] MEDS: ASCORBIC ACID 500 MG TABLET PO SCH (08:04)
[2020-11-26] MEDS: METFORMIN 500 MG TABLET PO SCH ×2 (08:04→17:00)
[2020-11-26] MEDS: risperiDONE 1 MG TABLET PO SCH ×2 (08:04→21:26)
[2020-11-26] MEDS: CARVEDILOL 6.25 MG TABLET PO SCH ×2 (08:05→17:00)
[2020-11-26] MEDS: LISINOPRIL (5MG) 5 MG TABLET PO SCH (08:05)
[2020-11-26] MEDS: APIXABAN 5 MG TABLET PO SCH ×2 (08:09→17:00)
[2020-11-26] MEDS: GLIMEPIRIDE 4 MG TABLET PO SCH (08:10)
[2020-11-26] MEDS: OLOPATADINE HCL 0.1% OPHTH BOTTLE EACHEYE SCH ×2 (08:19→17:00)
[2020-11-26] MEDS: Z GUARD REMEDY 2 OZ OINT TP SCH ×2 (08:19→20:33)
--- NOTE | 2020-11-26 09:00 | NUR ---
RN NOTE- PT ALERT CONFUSED ORIENTED TO PERSON ONLY , MED COMPLIANT DELUSIONAL PARANOID, A BIT OPPOSITINAL AT TIMES DENYING SI HI AH VH PO INTAKE GOOD OOB W FWW PLUS ONE ASSIST
--- NOTE | 2020-11-26 11:30 | NUR ---
WOUND CARE CONSULT: PT REFUSED FULL SKIN ASSESSMENT BUT WAS NOTED TO HAVE RT LOWER LEG SWELLING, MUCH LARGER THAN LEFT WELL GROIN RASHES NOTED IN ADMISSION PHOTOS. RECOMMENDATIONS MADE FOR SKIN PROTECTION. LEG SWELLING TO BE DISCUSSED WITH PMD PER SOCIAL SCIENTIST. IN AGREEMENT WITH PLAN OF CARE.
--- NOTE | 2020-11-26 11:39 | NUR ---
RN NOTE- SAUSAGE MIXER ON UNIT ASSESSING PT RASHES. PT NOTED TO HAVE EDEMATOUS RLE MORE PRONOUNCED THAN LLE. EAGLE WARD NOTIFIED. ORDERED VENOUS DOPPLER RLE. COMPLIED
--- NOTE | 2020-11-26 12:33 | NUR ---
RN NOTE- VENOUS DOPPLER STUDY RLE COMPLETED. TECH STATES SMALL CLOT NOTED. MANAGER CITY ED NOTIFIED. AWAITING REPORT IN EMR
--- NOTE | 2020-11-26 12:34 | NUR ---
RN NOTE- PT IN BED W LOWER EXTREMITIES ELEVATED.
--- NOTE | 2020-11-26 13:30 | NUR ---
RN NOTE- DVT RLE. PT BEING GIVEN RX. BEVERAGE SERVER ED ORDERING.
[2020-11-26 16:00] VITALS: BP 120/77
[2020-11-26] MEDS: CLOTRIMAZOLE 1% 15 GM TUBE TP SCH (17:00)
[2020-11-26] MEDS ORDERED: APIXABAN 5 MG TABLET PO SCH (17:00)
[2020-11-26] MEDS: ATORVASTATIN 10 MG TABLET PO SCH (21:24)
[2020-11-26] MEDS: TEMAZEPAM 7.5 MG CAPSULE PO PRN (23:54)
--- NOTE | 2020-11-26 23:56 | NUR ---
GPS-RN NOTES: INSOMNIA PATIENT C/O INABILITY TO SLEEP. ADMINISTERED RESTORIL 7.5MG PO ORDERED. WILL CONTINUE TO MONITOR.
[2020-11-27 03:48] VITALS: BP 145/87
[2020-11-27 04:30] VITALS: BP 145/87
[2020-11-27 08:00] VITALS: BP 143/93
[2020-11-27] MEDS: CLOTRIMAZOLE 1% 15 GM TUBE TP SCH ×2 (10:10→17:31)
[2020-11-27] MEDS: Z GUARD REMEDY 2 OZ OINT TP SCH ×2 (10:10→21:25)
[2020-11-27] MEDS: GLIMEPIRIDE 4 MG TABLET PO SCH (10:10)
[2020-11-27] MEDS: risperiDONE 1 MG TABLET PO SCH ×2 (10:11→21:24)
[2020-11-27] MEDS: DIVALPROEX SODIUM 250 MG TABLET.DR PO SCH ×2 (10:11→21:24)
[2020-11-27] MEDS: ASCORBIC ACID 500 MG TABLET PO SCH (10:11)
[2020-11-27] MEDS: MULTIVITAMINS,THERAGRAN 1 UDTAB TABLET PO SCH (10:11)
[2020-11-27] MEDS: OLOPATADINE HCL 0.1% OPHTH BOTTLE EACHEYE SCH ×2 (10:11→17:32)
[2020-11-27] MEDS: CARVEDILOL 6.25 MG TABLET PO SCH ×2 (10:12→17:32)
[2020-11-27] MEDS: METFORMIN 500 MG TABLET PO SCH ×2 (10:12→17:33)
[2020-11-27] MEDS: LISINOPRIL (5MG) 5 MG TABLET PO SCH (10:13)
[2020-11-27] MEDS: CLOPIDOGREL BISULFATE 75 MG TABLET PO SCH (10:14)
[2020-11-27] MEDS: APIXABAN 5 MG TABLET PO SCH ×2 (10:22→17:36)
[2020-11-27 16:00] VITALS: BP 135/77
--- NOTE | 2020-11-27 16:32 | NUR ---
GOT AGITATED WITH ROOMATE EARLIER IN DAY,BUT WENT TO DINING RM. AND WAS ABLE TO CALM DOWN.REFUSED ATIVAN.
--- NOTE | 2020-11-27 18:46 | NUR ---
RECEIVED CALL FROM [facility].THAT PT. HAS MRSA NARES.BACTROBAN ORDERED,PT. MOVED TO RM. 217.
[2020-11-27 20:00] VITALS: BP 131/70
[2020-11-27] MEDS: TEMAZEPAM 7.5 MG CAPSULE PO PRN (21:24)
[2020-11-27] MEDS: ATORVASTATIN 10 MG TABLET PO SCH (21:24)
[2020-11-27] MEDS: MUPIROCIN OINT 2% 22 GM TUBE NS SCH (21:25)
[2020-11-28 08:00] VITALS: BP 150/80
[2020-11-28] MEDS: METFORMIN 500 MG TABLET PO SCH ×2 (08:14→17:00)
[2020-11-28] MEDS: GLIMEPIRIDE 4 MG TABLET PO SCH (08:17)
[2020-11-28] MEDS: APIXABAN 5 MG TABLET PO SCH ×2 (09:09→16:36)
--- NOTE | 2020-11-28 09:28 | NUR ---
Family Contact: SW called the pts son, Alonso Bates ([phone]), and left a voicemail stating that the SW would like discuss the pts discharge plan and inform him of the probable cause hearing taking place today for the pt.
[2020-11-28] MEDS: risperiDONE 1 MG TABLET PO SCH ×2 (09:31→21:21)
[2020-11-28] MEDS: CARVEDILOL 6.25 MG TABLET PO SCH ×2 (09:31→16:36)
[2020-11-28] MEDS: MULTIVITAMINS,THERAGRAN 1 UDTAB TABLET PO SCH (09:31)
[2020-11-28] MEDS: ASCORBIC ACID 500 MG TABLET PO SCH (09:32)
[2020-11-28] MEDS: LISINOPRIL (5MG) 5 MG TABLET PO SCH (09:32)
[2020-11-28] MEDS: DIVALPROEX SODIUM 250 MG TABLET.DR PO SCH ×2 (09:32→21:21)
[2020-11-28] MEDS: OLOPATADINE HCL 0.1% OPHTH BOTTLE EACHEYE SCH ×2 (09:32→16:35)
[2020-11-28] MEDS: CLOPIDOGREL BISULFATE 75 MG TABLET PO SCH (09:32)
[2020-11-28] MEDS: CLOTRIMAZOLE 1% 15 GM TUBE TP SCH ×2 (09:33→16:38)
[2020-11-28] MEDS: MUPIROCIN OINT 2% 22 GM TUBE NS SCH ×2 (09:33→21:22)
[2020-11-28] MEDS: Z GUARD REMEDY 2 OZ OINT TP SCH ×2 (09:33→21:21)
--- NOTE | 2020-11-28 14:37 | NUR ---
Probable Cause Hearing: Pts 5250 hold was upheld for grave disability.
[2020-11-28 16:00] VITALS: BP 147/82
[2020-11-28 20:38] VITALS: BP 124/69
[2020-11-28] MEDS: TEMAZEPAM 7.5 MG CAPSULE PO PRN (21:21)
[2020-11-28] MEDS: ATORVASTATIN 10 MG TABLET PO SCH (21:21)
[2020-11-29] MEDS: METFORMIN 500 MG TABLET PO SCH ×2 (07:53→17:01)
[2020-11-29] MEDS: GLIMEPIRIDE 4 MG TABLET PO SCH (07:53)
[2020-11-29] MEDS: MULTIVITAMINS,THERAGRAN 1 UDTAB TABLET PO SCH (08:24)
[2020-11-29] MEDS: DIVALPROEX SODIUM 250 MG TABLET.DR PO SCH ×2 (08:24→20:44)
[2020-11-29] MEDS: ASCORBIC ACID 500 MG TABLET PO SCH (08:24)
[2020-11-29] MEDS: CLOPIDOGREL BISULFATE 75 MG TABLET PO SCH (08:24)
[2020-11-29] MEDS: risperiDONE 1 MG TABLET PO SCH ×2 (08:24→20:44)
[2020-11-29] MEDS: LISINOPRIL (5MG) 5 MG TABLET PO SCH (08:29)
[2020-11-29] MEDS: CARVEDILOL 6.25 MG TABLET PO SCH ×2 (08:30→16:02)
[2020-11-29] MEDS: APIXABAN 5 MG TABLET PO SCH ×2 (08:31→16:03)
--- NOTE | 2020-11-29 09:00 | NUR ---
RN NOTE- PT ALERT ORIENTED TO PERSON PLACE CONFUSED DELUSIONAL, PO INTAKE GOOD MED COMPLIANT A BIT DISORGANIZED IN CONVERSATION DVT RLE ELEVATED LIMBS
[2020-11-29] MEDS: CLOTRIMAZOLE 1% 15 GM TUBE TP SCH ×2 (09:09→16:08)
[2020-11-29] MEDS: OLOPATADINE HCL 0.1% OPHTH BOTTLE EACHEYE SCH ×2 (09:09→16:12)
[2020-11-29] MEDS: Z GUARD REMEDY 2 OZ OINT TP SCH ×2 (09:09→20:45)
[2020-11-29] MEDS: MUPIROCIN OINT 2% 22 GM TUBE NS SCH ×2 (09:09→20:44)
--- NOTE | 2020-11-29 11:11 | NUR ---
WOUND CARE CONSULT/FOLLOW UP: PT SEEN FOR RASH/REDNESS TO GROIN FOLDS, PERINEUM AND INNER BUTTOCKS. RECOMMENDATIONS MADE FOR SKIN PROTECTION. DISCUSSED WITH NURSING STAFF. MD IN AGREEMENT WITH PLAN OF CARE.
--- NOTE | 2020-11-29 11:31 | NUR ---
RN NOTE- GROIN AREA CLEANED W HOT SOAPY WATER. LOTRIMIN CREAM AND Z GUARD APPLIED TO AREA AFTER DRYING.
[2020-11-29 16:11] VITALS: BP 141/70
[2020-11-29 20:10] VITALS: BP 145/75
[2020-11-29] MEDS: ATORVASTATIN 10 MG TABLET PO SCH (21:07)
[2020-11-29] MEDS: TEMAZEPAM 7.5 MG CAPSULE PO PRN (22:16)
--- NOTE | 2020-11-30 06:28 | NUR ---
RN NOTES: PT. RESTING WELL IN HIS ROOM, CALM COOPERTIVE AT THIS TIME , DENIES ANY PAIN/ DISCOMFORT AT THIS TIME, NO ACUTE DISTRESS NOTED , ENDORSE TO AM NURSE OR CONTINUITY WITH CARE.
[2020-11-30] MEDS: METFORMIN 500 MG TABLET PO SCH ×2 (08:10→17:09)
[2020-11-30] MEDS: OLOPATADINE HCL 0.1% OPHTH BOTTLE EACHEYE SCH ×2 (08:12→16:20)
[2020-11-30] MEDS: GLIMEPIRIDE 4 MG TABLET PO SCH (08:12)
[2020-11-30] MEDS: MUPIROCIN OINT 2% 22 GM TUBE NS SCH ×2 (08:13→21:12)
[2020-11-30] MEDS: ASCORBIC ACID 500 MG TABLET PO SCH (08:14)
[2020-11-30] MEDS: LISINOPRIL (5MG) 5 MG TABLET PO SCH (08:14)
[2020-11-30] MEDS: DIVALPROEX SODIUM 250 MG TABLET.DR PO SCH ×2 (08:14→21:12)
[2020-11-30] MEDS: risperiDONE 1 MG TABLET PO SCH ×2 (08:14→21:12)
[2020-11-30] MEDS: CLOPIDOGREL BISULFATE 75 MG TABLET PO SCH (08:15)
[2020-11-30] MEDS: MULTIVITAMINS,THERAGRAN 1 UDTAB TABLET PO SCH (08:15)
[2020-11-30] MEDS: CARVEDILOL 6.25 MG TABLET PO SCH ×2 (08:15→17:10)
[2020-11-30] MEDS: APIXABAN 5 MG TABLET PO SCH ×2 (08:16→17:11)
[2020-11-30 08:30] VITALS: BP 131/63
[2020-11-30] MEDS: Z GUARD REMEDY 2 OZ OINT TP SCH ×2 (09:05→21:12)
[2020-11-30] MEDS: CLOTRIMAZOLE 1% 15 GM TUBE TP SCH ×2 (09:08→16:17)
[2020-11-30] MEDS: ACETAMINOPHEN 325 MG TABLET PO PRN (13:56)
--- NOTE | 2020-11-30 13:57 | NUR ---
RN NOTE: PAIN PT C/O 3/10 HEAD ACHE. MEDICATED WITH TYLENOL 650 MG PO PRN.
[2020-11-30 16:00] VITALS: BP 151/73
[2020-11-30 19:58] VITALS: BP 97/42
[2020-11-30 20:05] VITALS: BP 97/42
[2020-11-30 20:42] VITALS: BP 106/71
[2020-11-30] MEDS: ATORVASTATIN 10 MG TABLET PO SCH (21:38)
[2020-11-30] MEDS: TEMAZEPAM 7.5 MG CAPSULE PO PRN (23:01)
--- NOTE | 2020-11-30 23:02 | NUR ---
RN NOTE: INSOMNIA PATIENT STATED THAT HE IS UNABLE TO SLEEP & REQUESTED TO GET SLEEPING MEDICINE. PRN RESTORIL 7.5 MG 1 CAP PO ADMINISTERED. WILL CONTINUE TO MONITOR.
[2020-12-01 08:00] VITALS: BP 129/73
[2020-12-01] MEDS: OLOPATADINE HCL 0.1% OPHTH BOTTLE EACHEYE SCH ×2 (09:00→16:29)
[2020-12-01] MEDS: risperiDONE 1 MG TABLET PO SCH ×2 (09:10→21:27)
[2020-12-01] MEDS: ASCORBIC ACID 500 MG TABLET PO SCH (09:11)
[2020-12-01] MEDS: DIVALPROEX SODIUM 250 MG TABLET.DR PO SCH ×2 (09:11→21:27)
[2020-12-01] MEDS: MULTIVITAMINS,THERAGRAN 1 UDTAB TABLET PO SCH (09:11)
[2020-12-01] MEDS: METFORMIN 500 MG TABLET PO SCH ×2 (09:11→17:36)
[2020-12-01] MEDS: CARVEDILOL 6.25 MG TABLET PO SCH ×2 (09:11→16:32)
[2020-12-01] MEDS: CLOPIDOGREL BISULFATE 75 MG TABLET PO SCH (09:11)
[2020-12-01] MEDS: GLIMEPIRIDE 4 MG TABLET PO SCH (09:12)
[2020-12-01] MEDS: LISINOPRIL (5MG) 5 MG TABLET PO SCH (09:12)
[2020-12-01] MEDS: MUPIROCIN OINT 2% 22 GM TUBE NS SCH ×2 (09:12→21:27)
[2020-12-01] MEDS: APIXABAN 5 MG TABLET PO SCH ×2 (09:14→16:33)
[2020-12-01] MEDS: CLOTRIMAZOLE 1% 15 GM TUBE TP SCH ×2 (09:22→16:34)
[2020-12-01] MEDS: Z GUARD REMEDY 2 OZ OINT TP SCH ×2 (09:22→21:25)
[2020-12-01 16:00] VITALS: BP 115/66
[2020-12-01 21:24] VITALS: BP 127/74
[2020-12-01] MEDS: ATORVASTATIN 10 MG TABLET PO SCH (21:27)
[2020-12-01] MEDS: TEMAZEPAM 7.5 MG CAPSULE PO PRN (22:13)
--- NOTE | 2020-12-01 23:00 | NUR ---
REFUSED PICTURES PT STATES, "IM GONNA GET TO SLEEP, ID LIKE TO DO THAT LATER, IF YOU DON'T MIND."
[2020-12-02] MEDS: GLIMEPIRIDE 4 MG TABLET PO SCH (07:30)
[2020-12-02 08:00] VITALS: BP 107/57
[2020-12-02] MEDS: DIVALPROEX SODIUM 250 MG TABLET.DR PO SCH ×2 (08:41→21:06)
[2020-12-02] MEDS: CLOPIDOGREL BISULFATE 75 MG TABLET PO SCH (08:41)
[2020-12-02] MEDS: METFORMIN 500 MG TABLET PO SCH ×2 (08:41→17:24)
[2020-12-02] MEDS: risperiDONE 1 MG TABLET PO SCH ×2 (08:42→21:06)
[2020-12-02] MEDS: MULTIVITAMINS,THERAGRAN 1 UDTAB TABLET PO SCH (08:42)
[2020-12-02] MEDS: ASCORBIC ACID 500 MG TABLET PO SCH (08:42)
[2020-12-02] MEDS: OLOPATADINE HCL 0.1% OPHTH BOTTLE EACHEYE SCH ×2 (08:45→16:51)
[2020-12-02] MEDS: APIXABAN 5 MG TABLET PO SCH ×2 (08:45→16:51)
[2020-12-02] MEDS: CARVEDILOL 6.25 MG TABLET PO SCH ×2 (08:45→16:51)
[2020-12-02] MEDS: MUPIROCIN OINT 2% 22 GM TUBE NS SCH ×2 (08:45→21:05)
[2020-12-02] MEDS: Z GUARD REMEDY 2 OZ OINT TP SCH ×2 (08:46→21:06)
[2020-12-02] MEDS: LISINOPRIL (5MG) 5 MG TABLET PO SCH (08:46)
[2020-12-02] MEDS: CLOTRIMAZOLE 1% 15 GM TUBE TP SCH ×2 (08:46→16:51)
[2020-12-02 16:00] VITALS: BP 125/71
--- NOTE | 2020-12-02 16:20 | NUR ---
Individual Therapy: SW met with pt. bedside to conduct individual therapy regarding Positive Coping Mechanisms. Patient was receptive and stated he coped with with situations by "walking away". SW educated pt. regarding positive coping mechanisms. Patient agreeable and stated he is willing "to try" to use positive coping mechanisms. SW will continue to provide therapy as needed.
[2020-12-02 20:26] VITALS: BP 143/79
[2020-12-02] MEDS: TEMAZEPAM 7.5 MG CAPSULE PO PRN (21:05)
[2020-12-02] MEDS: ATORVASTATIN 10 MG TABLET PO SCH (21:06)
[2020-12-03 08:00] VITALS: BP 143/77
[2020-12-03] MEDS: OLOPATADINE HCL 0.1% OPHTH BOTTLE EACHEYE SCH ×2 (08:35→16:56)
[2020-12-03] MEDS: MUPIROCIN OINT 2% 22 GM TUBE NS SCH ×2 (08:35→21:47)
[2020-12-03] MEDS: GLIMEPIRIDE 4 MG TABLET PO SCH (08:36)
[2020-12-03] MEDS: LISINOPRIL (5MG) 5 MG TABLET PO SCH (08:36)
[2020-12-03] MEDS: CLOPIDOGREL BISULFATE 75 MG TABLET PO SCH (08:36)
[2020-12-03] MEDS: risperiDONE 1 MG TABLET PO SCH ×2 (08:36→21:47)
[2020-12-03] MEDS: CLOTRIMAZOLE 1% 15 GM TUBE TP SCH ×2 (08:36→16:56)
[2020-12-03] MEDS: MULTIVITAMINS,THERAGRAN 1 UDTAB TABLET PO SCH (08:36)
[2020-12-03] MEDS: DIVALPROEX SODIUM 250 MG TABLET.DR PO SCH ×2 (08:36→21:47)
[2020-12-03] MEDS: ASCORBIC ACID 500 MG TABLET PO SCH (08:36)
[2020-12-03] MEDS: CARVEDILOL 6.25 MG TABLET PO SCH ×2 (08:36→17:16)
[2020-12-03] MEDS: METFORMIN 500 MG TABLET PO SCH ×2 (08:36→17:16)
[2020-12-03] MEDS: Z GUARD REMEDY 2 OZ OINT TP SCH ×2 (08:36→21:46)
[2020-12-03] MEDS: APIXABAN 5 MG TABLET PO SCH ×2 (08:38→17:19)
[2020-12-03 16:00] VITALS: BP 129/74
[2020-12-03] MEDS: ATORVASTATIN 10 MG TABLET PO SCH (21:46)
[2020-12-04 08:00] VITALS: BP 134/72
[2020-12-04] MEDS: GLIMEPIRIDE 4 MG TABLET PO SCH (08:03)
[2020-12-04] MEDS: METFORMIN 500 MG TABLET PO SCH ×2 (08:03→17:00)
[2020-12-04] MEDS: OLOPATADINE HCL 0.1% OPHTH BOTTLE EACHEYE SCH ×2 (08:05→16:57)
[2020-12-04] MEDS: MUPIROCIN OINT 2% 22 GM TUBE NS SCH (08:05)
[2020-12-04] MEDS: Z GUARD REMEDY 2 OZ OINT TP SCH ×2 (08:06→21:45)
[2020-12-04] MEDS: ASCORBIC ACID 500 MG TABLET PO SCH (08:07)
[2020-12-04] MEDS: LISINOPRIL (5MG) 5 MG TABLET PO SCH (08:07)
[2020-12-04] MEDS: risperiDONE 1 MG TABLET PO SCH ×2 (08:07→21:45)
[2020-12-04] MEDS: CLOPIDOGREL BISULFATE 75 MG TABLET PO SCH (08:07)
[2020-12-04] MEDS: MULTIVITAMINS,THERAGRAN 1 UDTAB TABLET PO SCH (08:07)
[2020-12-04] MEDS: DIVALPROEX SODIUM 250 MG TABLET.DR PO SCH ×2 (08:07→21:45)
[2020-12-04] MEDS: CARVEDILOL 6.25 MG TABLET PO SCH ×2 (08:08→17:02)
[2020-12-04] MEDS: APIXABAN 5 MG TABLET PO SCH ×2 (08:09→17:01)
[2020-12-04] MEDS: CLOTRIMAZOLE 1% 15 GM TUBE TP SCH ×2 (10:10→17:03)
[2020-12-04 16:00] VITALS: BP 145/77
[2020-12-04 20:41] VITALS: BP 128/66
[2020-12-04] MEDS: ATORVASTATIN 10 MG TABLET PO SCH (21:45)
[2020-12-04] MEDS: LORAZEPAM 0.5 MG TABLET PO PRN (21:45)
[2020-12-05 08:00] VITALS: BP 130/70
[2020-12-05] MEDS: METFORMIN 500 MG TABLET PO SCH ×2 (08:12→17:07)
[2020-12-05] MEDS: GLIMEPIRIDE 4 MG TABLET PO SCH (08:12)
[2020-12-05] MEDS: Z GUARD REMEDY 2 OZ OINT TP SCH ×2 (08:32→21:41)
[2020-12-05] MEDS: CLOTRIMAZOLE 1% 15 GM TUBE TP SCH ×2 (08:32→16:55)
[2020-12-05] MEDS: DIVALPROEX SODIUM 250 MG TABLET.DR PO SCH ×2 (08:33→21:40)
[2020-12-05] MEDS: CLOPIDOGREL BISULFATE 75 MG TABLET PO SCH (08:33)
[2020-12-05] MEDS: CARVEDILOL 6.25 MG TABLET PO SCH ×2 (08:33→16:52)
[2020-12-05] MEDS: risperiDONE 1 MG TABLET PO SCH ×2 (08:33→21:40)
[2020-12-05] MEDS: ASCORBIC ACID 500 MG TABLET PO SCH (08:34)
[2020-12-05] MEDS: LISINOPRIL (5MG) 5 MG TABLET PO SCH (08:34)
[2020-12-05] MEDS: APIXABAN 5 MG TABLET PO SCH ×2 (08:35→16:51)
[2020-12-05] MEDS: MULTIVITAMINS,THERAGRAN 1 UDTAB TABLET PO SCH (09:00)
[2020-12-05] MEDS: OLOPATADINE HCL 0.1% OPHTH BOTTLE EACHEYE SCH ×2 (09:00→16:52)
[2020-12-05 16:00] VITALS: BP 111/76
[2020-12-05 20:04] VITALS: BP 128/71
[2020-12-05] MEDS: ATORVASTATIN 10 MG TABLET PO SCH (21:40)
[2020-12-05] MEDS: TEMAZEPAM 7.5 MG CAPSULE PO PRN (21:41)
[2020-12-06 08:00] VITALS: BP 147/75
[2020-12-06] MEDS: MULTIVITAMINS,THERAGRAN 1 UDTAB TABLET PO SCH (08:18)
[2020-12-06] MEDS: METFORMIN 500 MG TABLET PO SCH ×2 (08:18→17:05)
[2020-12-06] MEDS: DIVALPROEX SODIUM 250 MG TABLET.DR PO SCH ×2 (08:19→21:29)
[2020-12-06] MEDS: APIXABAN 5 MG TABLET PO SCH ×2 (08:19→16:20)
[2020-12-06] MEDS: risperiDONE 1 MG TABLET PO SCH ×2 (08:20→21:29)
[2020-12-06] MEDS: LISINOPRIL (5MG) 5 MG TABLET PO SCH (08:20)
[2020-12-06] MEDS: CLOPIDOGREL BISULFATE 75 MG TABLET PO SCH (08:20)
[2020-12-06] MEDS: CARVEDILOL 6.25 MG TABLET PO SCH ×2 (08:20→16:20)
[2020-12-06] MEDS: GLIMEPIRIDE 4 MG TABLET PO SCH (08:20)
[2020-12-06] MEDS: ASCORBIC ACID 500 MG TABLET PO SCH (08:21)
[2020-12-06] MEDS: CLOTRIMAZOLE 1% 15 GM TUBE TP SCH ×2 (08:22→17:05)
[2020-12-06] MEDS: OLOPATADINE HCL 0.1% OPHTH BOTTLE EACHEYE SCH ×2 (08:22→17:05)
[2020-12-06] MEDS: Z GUARD REMEDY 2 OZ OINT TP SCH ×2 (08:23→21:30)
[2020-12-06] MEDS: ACETAMINOPHEN 325 MG TABLET PO PRN (09:16)
[2020-12-06 16:00] VITALS: BP 129/69
[2020-12-06 20:17] VITALS: BP 134/78
[2020-12-06] MEDS: ATORVASTATIN 10 MG TABLET PO SCH (21:29)
[2020-12-06] MEDS: TEMAZEPAM 7.5 MG CAPSULE PO PRN (23:08)
--- NOTE | 2020-12-06 23:08 | NUR ---
NURSES NOTES: PATIENT REQUESTED FOR HIS SLEEPING MEDICATION. RESTORIL 7.5 MG GIVEN ORALLY ORDERED. WILL MONITOR PATIENT AND HIS SLEEPING PATTERN.
[2020-12-07] MEDS: GLIMEPIRIDE 4 MG TABLET PO SCH (07:57)
[2020-12-07] MEDS: METFORMIN 500 MG TABLET PO SCH ×2 (07:57→17:23)
[2020-12-07 08:00] VITALS: BP 132/74
[2020-12-07] MEDS: MULTIVITAMINS,THERAGRAN 1 UDTAB TABLET PO SCH (08:06)
[2020-12-07] MEDS: CLOPIDOGREL BISULFATE 75 MG TABLET PO SCH (08:29)
[2020-12-07] MEDS: APIXABAN 5 MG TABLET PO SCH ×2 (08:30→16:13)
[2020-12-07] MEDS: risperiDONE 1 MG TABLET PO SCH ×2 (08:31→21:03)
[2020-12-07] MEDS: CARVEDILOL 6.25 MG TABLET PO SCH ×2 (08:31→16:11)
[2020-12-07] MEDS: DIVALPROEX SODIUM 250 MG TABLET.DR PO SCH ×3 (08:31→16:10)
[2020-12-07] MEDS: ASCORBIC ACID 500 MG TABLET PO SCH (08:31)
[2020-12-07] MEDS: LISINOPRIL (5MG) 5 MG TABLET PO SCH (08:33)
[2020-12-07] MEDS: OLOPATADINE HCL 0.1% OPHTH BOTTLE EACHEYE SCH ×3 (08:34→16:18)
[2020-12-07] MEDS: Z GUARD REMEDY 2 OZ OINT TP SCH ×2 (10:03→22:11)
[2020-12-07] MEDS: CLOTRIMAZOLE 1% 15 GM TUBE TP SCH ×2 (10:03→16:13)
[2020-12-07 16:00] VITALS: BP 129/74
[2020-12-07 20:02] VITALS: BP 105/59
[2020-12-07] MEDS: ATORVASTATIN 10 MG TABLET PO SCH (21:03)
[2020-12-07] MEDS: ACETAMINOPHEN 325 MG TABLET PO PRN (22:22)
[2020-12-07] MEDS: TEMAZEPAM 7.5 MG CAPSULE PO PRN (22:23)
[2020-12-08] MEDS: GLIMEPIRIDE 4 MG TABLET PO SCH (07:43)
[2020-12-08 08:00] VITALS: BP 106/67
[2020-12-08] MEDS: CLOPIDOGREL BISULFATE 75 MG TABLET PO SCH (08:24)
[2020-12-08] MEDS: DIVALPROEX SODIUM 250 MG TABLET.DR PO SCH ×3 (08:24→17:24)
[2020-12-08] MEDS: ASCORBIC ACID 500 MG TABLET PO SCH (08:24)
[2020-12-08] MEDS: MULTIVITAMINS,THERAGRAN 1 UDTAB TABLET PO SCH (08:24)
[2020-12-08] MEDS: METFORMIN 500 MG TABLET PO SCH ×2 (08:24→17:27)
[2020-12-08] MEDS: risperiDONE 1 MG TABLET PO SCH ×2 (08:24→21:54)
[2020-12-08] MEDS: APIXABAN 5 MG TABLET PO SCH ×2 (08:25→17:27)
[2020-12-08] MEDS: OLOPATADINE HCL 0.1% OPHTH BOTTLE EACHEYE SCH ×2 (08:48→17:00)
[2020-12-08] MEDS: CARVEDILOL 6.25 MG TABLET PO SCH ×2 (08:49→17:24)
[2020-12-08] MEDS: LISINOPRIL (5MG) 5 MG TABLET PO SCH (08:49)
[2020-12-08] MEDS: CLOTRIMAZOLE 1% 15 GM TUBE TP SCH ×2 (08:57→17:25)
[2020-12-08] MEDS: Z GUARD REMEDY 2 OZ OINT TP SCH ×2 (08:57→21:59)
[2020-12-08] MEDS: LORAZEPAM 0.5 MG TABLET PO PRN (09:48)
[2020-12-08] MEDS: ACETAMINOPHEN 325 MG TABLET PO PRN (09:48)
[2020-12-08 16:00] VITALS: BP 149/65
[2020-12-08 20:50] VITALS: BP 152/78
[2020-12-08] MEDS: TEMAZEPAM 7.5 MG CAPSULE PO PRN (21:54)
[2020-12-08] MEDS: ATORVASTATIN 10 MG TABLET PO SCH (21:56)
--- NOTE | 2020-12-08 22:00 | NUR ---
Pt c/o insomnia. Least restrictive measures ineffective. Restoril 7.5 mg 1 cap prn given as ordered. Will continue to monitor.
--- NOTE | 2020-12-08 23:05 | NUR ---
Post 1 hr Restoril PRN effective. Pt asleep in bed easy to arouse. Frequent visual check done for safety. Will continue to monitor.
--- NOTE | 2020-12-09 07:02 | NUR ---
GPS RN OPENING NOTES RECEIVED PATIENT AWAKE IN BED, AOX3-4. NO SOB NOTED. NO S/S OF DISTRESS.BREATHING UNLABORED. PT DENIES SI/HI. PT REMAINS CALM AND COOPERATIVE. BED IN LOWEST LOCKED POSITION, HOB ELEVATED, SIDE RAILS UPX2, CALL LIGHT AND TABLE WITHIN REACH. WILL CONTINUE TO MONITOR Q 15 MIN FOR SAFETY, MOOD & BEHAVIOR
[2020-12-09 08:00] VITALS: BP 149/68
[2020-12-09] MEDS: MULTIVITAMINS,THERAGRAN 1 UDTAB TABLET PO SCH (08:41)
[2020-12-09] MEDS: LISINOPRIL (5MG) 5 MG TABLET PO SCH (08:41)
[2020-12-09] MEDS: CLOPIDOGREL BISULFATE 75 MG TABLET PO SCH (08:41)
[2020-12-09] MEDS: DIVALPROEX SODIUM 250 MG TABLET.DR PO SCH ×3 (08:41→16:44)
[2020-12-09] MEDS: risperiDONE 1 MG TABLET PO SCH ×3 (08:42→22:26)
[2020-12-09] MEDS: ASCORBIC ACID 500 MG TABLET PO SCH (08:42)
[2020-12-09] MEDS: GLIMEPIRIDE 4 MG TABLET PO SCH (08:42)
[2020-12-09] MEDS: METFORMIN 500 MG TABLET PO SCH ×2 (08:42→17:00)
[2020-12-09] MEDS: CARVEDILOL 6.25 MG TABLET PO SCH ×2 (08:43→16:44)
[2020-12-09] MEDS: APIXABAN 5 MG TABLET PO SCH ×2 (08:44→16:45)
[2020-12-09] MEDS: Z GUARD REMEDY 2 OZ OINT TP SCH ×2 (08:48→21:36)
[2020-12-09] MEDS: CLOTRIMAZOLE 1% 15 GM TUBE TP SCH ×2 (08:49→16:48)
[2020-12-09] MEDS: OLOPATADINE HCL 0.1% OPHTH BOTTLE EACHEYE SCH ×2 (08:49→16:47)
--- NOTE | 2020-12-09 10:33 | NUR ---
Family Contact: SW called the pts son, Alonso Bates ([phone]), and informed him that the pt has not been discharged from the hospital and that the placement is uncertain at this time. Pts son stated that he is interested in having the pt move to a facility in his area which is [place], [place]. SW stated that she does not have any resources and is uncertain how to place the pt there. Pts son asked for some numbers of facilities. SW expressed that facilities do not usually admit psychiatric patients and explained that there are a lot of resources in the [place]. Pts son stated that he would still like to look into placement options in [facility] and stated that he would fly with the pt. SW stated that she will attempt to update him.
[2020-12-09 16:00] VITALS: BP 125/59
--- NOTE | 2020-12-09 18:56 | NUR ---
GPS RN CLOSING NOTES PT IN DINNING ROOM WATCHING TV AT THIS TIME. PT REMAINED STABLE THROUGH OUT SHIFT. ALL CARE, NEEDS, MEDICATIONS AND TREATMENT ADMINISTERED ANTICIPATED PER ORDER. PT KEPT CLEAN AND DRY. WILL ENDORSE TO INSURANCE SPECIALIST NURSE TO CONTINUE TO MONITOR Q 15 MIN FOR SAFETY, MOOD & BEHAVIOR
[2020-12-09 21:30] VITALS: BP 108/48
[2020-12-09] MEDS: LORAZEPAM 0.5 MG TABLET PO PRN (21:35)
[2020-12-09] MEDS: TEMAZEPAM 7.5 MG CAPSULE PO PRN (21:35)
[2020-12-09] MEDS: ATORVASTATIN 10 MG TABLET PO SCH (21:36)
[2020-12-09] MEDS ORDERED: risperiDONE 1 MG TABLET PO SCH (22:00)
[2020-12-10 08:00] VITALS: BP 128/55
[2020-12-10] MEDS: GLIMEPIRIDE 4 MG TABLET PO SCH (08:06)
[2020-12-10] MEDS: ASCORBIC ACID 500 MG TABLET PO SCH (08:06)
[2020-12-10] MEDS: DIVALPROEX SODIUM 250 MG TABLET.DR PO SCH ×3 (08:06→16:05)
[2020-12-10] MEDS: METFORMIN 500 MG TABLET PO SCH ×2 (08:06→17:47)
[2020-12-10] MEDS: CLOPIDOGREL BISULFATE 75 MG TABLET PO SCH (08:07)
[2020-12-10] MEDS: MULTIVITAMINS,THERAGRAN 1 UDTAB TABLET PO SCH (08:07)
[2020-12-10] MEDS: CARVEDILOL 6.25 MG TABLET PO SCH ×2 (08:14→16:03)
[2020-12-10] MEDS: LISINOPRIL (5MG) 5 MG TABLET PO SCH (08:16)
[2020-12-10] MEDS: APIXABAN 5 MG TABLET PO SCH ×2 (08:17→16:05)
[2020-12-10] MEDS: OLOPATADINE HCL 0.1% OPHTH BOTTLE EACHEYE SCH ×2 (08:19→16:06)
[2020-12-10] MEDS: CLOTRIMAZOLE 1% 15 GM TUBE TP SCH ×2 (08:19→16:06)
[2020-12-10] MEDS: Z GUARD REMEDY 2 OZ OINT TP SCH ×2 (08:19→21:53)
[2020-12-10] MEDS: risperiDONE 1 MG TABLET PO SCH ×2 (10:14→21:51)
--- NOTE | 2020-12-10 10:35 | NUR ---
Facility Contact: SW called [facility] and asked to speak to Scarlett but was told she was not in the facility yet so the SW left a message asking for a call back.
--- NOTE | 2020-12-10 15:10 | NUR ---
Facility Contact: CORDELIA called [facility] and spoke to the LOUIS Tucker who stated that she wanted an updated inquiry sent to their e fax: [phone]. CORDELIA sent the inquiry and will await a response.
--- NOTE | 2020-12-10 15:49 | NUR ---
Family Contact: SW called the pts son, Alonso Bates ([phone]), and informed him that the pts previous facility is considering readmitting him and the pts son stated that would be ideal because moving the pt to [facility] would be too difficult at this time. CORDELIA agreed and informed him that she would keep him updated on the pts discharge.
[2020-12-10 16:00] VITALS: BP 136/78
[2020-12-10 21:06] VITALS: BP 122/75
[2020-12-10] MEDS: ATORVASTATIN 10 MG TABLET PO SCH (21:51)
[2020-12-10] MEDS: Z GUARD REMEDY 4 OZ OINT TP PRN ×2 (21:51→21:53)
[2020-12-10] MEDS: LORAZEPAM 0.5 MG TABLET PO PRN (21:52)
[2020-12-10] MEDS: TEMAZEPAM 7.5 MG CAPSULE PO PRN (21:52)
[2020-12-11 08:00] VITALS: BP 153/78
[2020-12-11] MEDS: MULTIVITAMINS,THERAGRAN 1 UDTAB TABLET PO SCH (08:14)
[2020-12-11] MEDS: APIXABAN 5 MG TABLET PO SCH (08:14)
[2020-12-11] MEDS: METFORMIN 500 MG TABLET PO SCH (08:15)
[2020-12-11] MEDS: DIVALPROEX SODIUM 250 MG TABLET.DR PO SCH ×2 (08:15→12:16)
[2020-12-11] MEDS: LISINOPRIL (5MG) 5 MG TABLET PO SCH (08:16)
[2020-12-11] MEDS: CLOPIDOGREL BISULFATE 75 MG TABLET PO SCH (08:16)
[2020-12-11] MEDS: ASCORBIC ACID 500 MG TABLET PO SCH (08:16)
[2020-12-11] MEDS: GLIMEPIRIDE 4 MG TABLET PO SCH (08:16)
[2020-12-11 08:17] VITALS: BP 153/78
[2020-12-11] MEDS: CLOTRIMAZOLE 1% 15 GM TUBE TP SCH (08:17)
[2020-12-11] MEDS: CARVEDILOL 6.25 MG TABLET PO SCH (08:17)
[2020-12-11] MEDS: OLOPATADINE HCL 0.1% OPHTH BOTTLE EACHEYE SCH (08:18)
[2020-12-11] MEDS: Z GUARD REMEDY 2 OZ OINT TP SCH (08:32)
[2020-12-11] MEDS: risperiDONE 1 MG TABLET PO SCH (09:29)
--- NOTE | 2020-12-11 09:51 | NUR ---
Facility Contact: [facility] and spoke to the lactation coordinator Karol who stated that the pt will be accepted back today and that he will be placed in Rm 7A.
--- NOTE | 2020-12-11 09:52 | NUR ---
Family Contact: SW called the pts son, Alonso Bates ([phone]), and informed him via voicemail that the pt will [facility] today.
--- NOTE | 2020-12-11 10:31 | NUR ---
Discharge Note: Pt will be discharged to [facility] located at [address] [place] [address]; ([phone]) and will be placed in Rm 7A. Pt will be transported via [facility] (Trip #[id number]) around 2PM. Pts son, Kosta ([phone]), was notified of the discharge. Upon discharge, the pt appears to be in a euthymic mood and presents with a calm affect. Pt denies both suicidal and homicidal ideation as well as auditory and visual hallucinations. Pt will be under the care of his psychiatrist, Dr. Jovany Fung, located at [address] [place] [address]; and his systems testing laboratory technician, Dr. Wang Garber, located at [address] [facility] [address] [address]; . The choice of vendor and multidisciplinary exit care form were done, printed, signed, and given to the patient.
--- NOTE | 2020-12-11 11:56 | NUR ---
GPS/RN-NOTES RECEIVED T.O DISCHARGE ORDER FROM DR. LUCAS. NOTED AND CARRIED OUT.
--- NOTE | 2020-12-11 14:30 | NUR ---
NURSING DISCHARGE NOTE: PT WAS DISCHARGED TODAY AT 1430 TO [facility] ([facility]) LOCATED AT [address] [place], [place] [id number] . PT LEFT THE UNIT VIA GURNEY ACCOMPANIED BY 2 PRIMING MACHINE OPERATOR TO AMBULANCE. PT IS A&OX2, CALM, COOPERATIVE, MED COMPLIANT, DENIES SI/HI/AVH AT THE TIME OF DISCHARGE. NO S/S OF ANY DISTRESS NOTED. NO C/O PAIN OR ANY DISCOMFORT. PT WAS COOPERATIVE WITH THE DISCHARGE PROCESS AND WAS ABLE TO SIGN ALL DISCHARGE PAPERWORK. DISCHARGE ORDER WAS GIVEN BY DR. LUCAS WITH ORDER TO CONTINUE ALL PSYCHIATRIC MEDS AND PT HAS BEEN MEDICALLY CLEARED FOR DISCHARGE BY DR. CONCEPCION. PT HAS VERBALIZED UNDERSTANDING OF DISCHARGE INSTRUCTIONS AND HIS MEDICATIONS. REPORT WAS GIVEN TO JOY ROBERTS AT [phone]. VSS. PT REFUSED SKIN ASSESSMENT AND PHOTOS TO BE TAKEN. ALL BELONGINGS WERE RETURNED TO PT WELL.
== END 2020-12-11 14:30 | DRG 885 ==
LOC: ER 19:45 → GPS 21:08
PROVIDERS: ADMIT Psychiatry & Neurology Psychiatry; ATTEND Internal Medicine
DX: F39 Unspecified mood [affective] disorder (principal); E11.65 Type 2 diabetes mellitus with hyperglycemia; F03.91 Unspecified dementia, unspecified severity, with behavioral disturbance; E46 Unspecified protein-calorie malnutrition; G93.49 Other encephalopathy; I82.501 Chronic embolism and thrombosis of unspecified deep veins of right lower extremity; F32.9 Major depressive disorder, single episode, unspecified; F29 Unspecified psychosis not due to a substance or known physiological condition; F41.9 Anxiety disorder, unspecified; E11.51 Type 2 diabetes mellitus with diabetic peripheral angiopathy without gangrene; E66.9 Obesity, unspecified; I10 Essential (primary) hypertension; R32 Unspecified urinary incontinence; Z20.822 Contact with and (suspected) exposure to COVID-19; Z79.84 Long term (current) use of oral hypoglycemic drugs; Z79.899 Other long term (current) drug therapy; Z79.02 Long term (current) use of antithrombotics/antiplatelets; Z73.6 Limitation of activities due to disability; Z91.81 History of falling; Z68.32 Body mass index [BMI] 32.0-32.9, adult; F22 Delusional disorders; R53.1 Weakness; R27.8 Other lack of coordination; Z79.01 Long term (current) use of anticoagulants
CPT/HCPCS: 36415; 80048-TC; 80061-TC; 80076-TC; 80164-TC; 81001; 82565-TC; 82962-TC; 85025-TC; 87081-TC; 93971-TC; 97116-TC; 97530-TC; G0480

== ENCOUNTER 2024-01-07 22:09 | Inpatient (IN) | payer MEDICARE, OTHER ==
[~2024-01-07] VITALS: Ht 175.3 cm; Wt 89.4 kg
[2024-01-07 23:25] LABS: APPEARANCE,URINE SLIGHTLY CLOUDY (CLEAR); BILIRUBIN,URINE NEGATIVE (NEGATIVE); BLOOD, URINE 3+ Ery/uL (NEGATIVE); COLOR,URINE YELLOW (YELLOW); KETONES,URINE TRACE mg/dL (NEGATIVE); LEUKOCYTE ESTERASE ,URINE 1+ (NEGATIVE); NITRITE, URINE NEGATIVE (NEGATIVE); PROTEIN,URINE 1+ mg/dl (NEGATIVE); UGLUCOSE NEGATIVE (NEGATIVE)
[2024-01-07 23:37] LABS: INR 1.07 (0.91-1.10); PARTIAL THROMBOPLASTIN TIME 34.6 SEC (24.3-34.3); PROTHROMBIN TIME 11.3 SECS (9.2-11.1)
[2024-01-07 23:38] LABS: CALCIUM, SERUM 8.6 mg/dL (8.5-10.1); CARBON DIOXIDE 26 mmol/L (21-32); CHLORIDE 105 mmol/L (98-107); CREATININE 1.2 mg/dL (0.6-1.3); GLUCOSE 87 mg/dL (74-106); POTASSIUM 4.6 mmol/L (3.5-5.1); SERUM AMMONIA 27 umol/L (11-32); SODIUM SERUM 138 mmol/L (136-145); UREA NITROGEN, BLOOD 21 mg/dL (7-18)
[2024-01-07 23:39] LABS: BASOPHILS # (AUTO) 0.1 K/uL (0.0-0.2); BASOPHILS % (AUTO) 0.6 % (0.0-2.0); EOSINOPHILS # (AUTO) 0.1 K/uL (0.0-0.7); HEMATOCRIT 36 % (39-51); HEMOGLOBIN 12.2 g/dL (13.5-17.5); LYMPHOCYTES # (AUTO) 2.5 K/uL (0.8-4.8); LYMPHOCYTES % (AUTO) 29.2 % (20.0-44.0); MEAN CORPUSCULAR HEMOGLOBIN 31 PG (26.0-33.0); MEAN CORPUSCULAR HGB CONC 34 g/dl (31.0-36.0); MEAN CORPUSCULAR VOLUME 91 fL (80-96); MONOCYTES # (AUTO) 0.4 K/uL (0.1-1.30); MONOCYTES % (AUTO) 4.7 % (2.0-12.0); NEUTROPHILS # (AUTO) 5.4 K/uL (1.8-8.9); NEUTROPHILS % (AUTO) 64.5 % (43.0-81.0); PLATELET COUNT (AUTO) 188 K/uL (150-450); RED BLOOD CELL COUNT(AUTO) 3.93 MIL/uL (4.5-6.0); RED CELL DISTRIBUTION WIDTH 15.1 % (11.5-15.0); WHITE BLOOD COUNT (AUTO) 8.4 K/uL (4.3-11.0)
[2024-01-07 23:46] LABS: ALANINE AMINOTRANSFERASE 10 U/L (12-78); ALBUMIN 2.7 g/dL (3.4-5.0); ALCOHOL, BLOOD < 3 mg/dL (0-10); ALKALINE PHOSPHATASE 75 U/L (46-116); AMPHETAMINE, URINE NEGATIVE (NEGATIVE); ASPARTATE AMINOTRANSFERASE 8 U/L (15-37); BARBITURATE, URINE NEGATIVE (NEGATIVE); BENZODIAZEPINE, URINE NEGATIVE (NEGATIVE); BILIRUBIN,DIRECT 0.2 mg/dL (0.0-0.2); BILIRUBIN,TOTAL 0.4 mg/dL (0.2-1.0); CANNABINOID, URINE NEGATIVE (NEGATIVE); COCCAINE, URINE NEGATIVE (NEGATIVE); OPIATE, URINE NEGATIVE (NEGATIVE); PHENCYCLIDINE SCREEN,URINE NEGATIVE (NEGATIVE); TOTAL PROTEIN, SERUM 6.7 g/dL (6.4-8.2)
[2024-01-08 00:03] LABS: ACETAMINOPHEN <10 ug/ml (10-30); SALICYLATE 0.9 mg/dL (2.8-20.0)
[2024-01-08] MEDS ORDERED: CEFTRIAXONE 1GM BAG (ER ONLY) 50 ML IV ONE (00:17)
[2024-01-08] MEDS: CEFTRIAXONE 1 G in IV D5W 50 ML IV ONE (00:25)
[2024-01-08 01:07] LABS: ADD URINE CULTURE YES; BACTERIA,URINE 1+ /HPF (None Seen); MUCUS,URINE Moderate /LPF (None Seen); RBC,URINE 21-50 /HPF (0-2); SQUAMOUS EPITHELIAL CELL,UR None Seen /HPF (None Seen)
[2024-01-08] MEDS ORDERED: DIVA250T PO (01:34)
[2024-01-08] MEDS ORDERED: TRAM50TA2 PO (01:34)
[2024-01-08] MEDS ORDERED: IBUP-1953 PO (01:34)
[2024-01-08] MEDS ORDERED: CALC355O18 (01:34)
[2024-01-08] MEDS ORDERED: RISP0.5T5 PO (01:34)
[2024-01-08] MEDS ORDERED: ACET325C7 PO (01:46)
[2024-01-08] MEDS ORDERED: MELA5TAB PO (01:46)
[2024-01-08 03:19] VITALS: BP 137/81; TEMP 97.3; O2SAT 94
[2024-01-08 04:00] VITALS: BP 135/68; TEMP 97.3; O2SAT 94
[2024-01-08] MEDS ORDERED: Z GUARD REMEDY 4 OZ OINT TP PRN (06:30)
[2024-01-08] MEDS ORDERED: ONDANSETRON HCL/PF 4 MG/2 ML VIAL IVP PRN (06:30)
[2024-01-08] MEDS: ENOXAPARIN SODIUM 40 MG/0.4 ML DISP.SYRIN SQ SCH (06:44)
[2024-01-08] MEDS: IV NS 0.9% 1,000 ML IV PRN (06:48)
[2024-01-08 08:00] VITALS: BP 112/70; TEMP 97.7; O2SAT 97
[2024-01-08] MEDS ORDERED: ACET325T53 PO (08:09)
[2024-01-08] MEDS ORDERED: MAGN400O6 PO (08:09)
[2024-01-08] MEDS ORDERED: POLY15DR31 EACHEYE (08:09)
[2024-01-08] MEDS ORDERED: MAG30ORA PO (08:09)
[2024-01-08] MEDS ORDERED: INSU100V39 SQ (08:09)
[2024-01-08] MEDS ORDERED: RISP0.2515 PO (08:09)
[2024-01-08] MEDS ORDERED: MULT-594 PO (08:09)
[2024-01-08 12:00] VITALS: BP_SYST 114; BP_SYST 147; BP_DIAS 66; BP_DIAS 73; TEMP 97.9; TEMP 98.7; O2SAT 97; O2SAT 98
[2024-01-08 16:00] VITALS: BP 149/71; TEMP 97.7; O2SAT 94
[2024-01-08] MEDS: ACETAMINOPHEN 325 MG TABLET PO PRN (18:42)
[2024-01-08 20:00] VITALS: BP 142/68; TEMP 98.8; O2SAT 100
[2024-01-08] MEDS: CEFTRIAXONE 1 G in IV D5W 50 ML IV SCH (23:37)
[2024-01-09] VITALS: BP 135/68; TEMP 98.7; O2SAT 100
[2024-01-09 04:00] VITALS: BP 132/74; TEMP 98.7
[2024-01-09 08:00] VITALS: BP 125/74; TEMP 97.9; O2SAT 100
[2024-01-09 08:31] LABS: BASOPHILS % (AUTO) 0.4 % (0.0-2.0); EOSINOPHILS # (AUTO) 0.1 K/uL (0.0-0.7); EOSINOPHILS % (AUTO) 2.3 % (0.0-6.0); HEMATOCRIT 36 % (39-51); HEMOGLOBIN 12.4 g/dL (13.5-17.5); LYMPHOCYTES % (AUTO) 37.1 % (20.0-44.0); MEAN CORPUSCULAR HEMOGLOBIN 31 PG (26.0-33.0); MEAN CORPUSCULAR HGB CONC 35 g/dl (31.0-36.0); MEAN CORPUSCULAR VOLUME 90 fL (80-96); MONOCYTES # (AUTO) 0.5 K/uL (0.1-1.30); MONOCYTES % (AUTO) 8.6 % (2.0-12.0); NEUTROPHILS # (AUTO) 2.8 K/uL (1.8-8.9); NEUTROPHILS % (AUTO) 51.6 % (43.0-81.0); PLATELET COUNT (AUTO) 159 K/uL (150-450); RED BLOOD CELL COUNT(AUTO) 3.97 MIL/uL (4.5-6.0); WHITE BLOOD COUNT (AUTO) 5.3 K/uL (4.3-11.0)
[2024-01-09 09:27] LABS: CALCIUM, SERUM 8.3 mg/dL (8.5-10.1); CARBON DIOXIDE 24 mmol/L (21-32); CHLORIDE 104 mmol/L (98-107); CREATININE 0.7 mg/dL (0.6-1.3); GLUCOSE 95 mg/dL (74-106); MAGNESIUM 1.7 mg/dL (1.8-2.4); PHOSPHORUS 3.5 mg/dL (2.5-4.9); POTASSIUM 4.3 mmol/L (3.5-5.1); SODIUM SERUM 135 mmol/L (136-145); UREA NITROGEN, BLOOD 12 mg/dL (7-18)
[2024-01-09 12:00] VITALS: BP 139/62; TEMP 97.3; O2SAT 100
[2024-01-09 16:00] VITALS: BP 143/64; TEMP 98.2; O2SAT 99
[2024-01-09 20:00] VITALS: BP 124/55; TEMP 98.4; O2SAT 98
[2024-01-10] VITALS: BP 123/67; TEMP 98.2; O2SAT 97
[2024-01-10 04:00] VITALS: BP 138/85; TEMP 98.1; O2SAT 98
[2024-01-10 08:00] VITALS: BP 152/85; TEMP 97.5; O2SAT 98
[2024-01-10 12:00] VITALS: BP 127/74; TEMP 97.7; O2SAT 96
[2024-01-10 16:00] VITALS: BP 148/71; TEMP 97.5; O2SAT 96
[2024-01-10 20:00] VITALS: BP 139/73; TEMP 99; O2SAT 96
[2024-01-11] VITALS: BP 123/70; TEMP 99; O2SAT 96
[2024-01-11 04:00] VITALS: BP 107/57; TEMP 99; O2SAT 96
[2024-01-11 08:00] VITALS: BP 142/69; TEMP 97.5; O2SAT 98
[2024-01-11 12:00] VITALS: BP 140/75; TEMP 98.4; O2SAT 99
[2024-01-11 16:00] VITALS: BP 129/72; TEMP 98.2; O2SAT 98
[2024-01-11 20:00] VITALS: BP 144/76; TEMP 98.8; O2SAT 98
[2024-01-11] MEDS ORDERED: POLYVINYL ALCOHOL 15 ML BOTTLE EACHEYE PRN (23:00)
[2024-01-12] MEDS: APIXABAN 5 MG TABLET PO SCH (00:30)
[2024-01-12 05:00] VITALS: BP 131/99; TEMP 98.2; O2SAT 98
[2024-01-12 07:40] LABS: BASOPHILS % (AUTO) 0.3 % (0.0-2.0); EOSINOPHILS # (AUTO) 0.2 K/uL (0.0-0.7); EOSINOPHILS % (AUTO) 3.3 % (0.0-6.0); HEMATOCRIT 38 % (39-51); HEMOGLOBIN 13.2 g/dL (13.5-17.5); LYMPHOCYTES # (AUTO) 2.3 K/uL (0.8-4.8); LYMPHOCYTES % (AUTO) 35.1 % (20.0-44.0); MEAN CORPUSCULAR HEMOGLOBIN 31 PG (26.0-33.0); MEAN CORPUSCULAR HGB CONC 35 g/dl (31.0-36.0); MEAN CORPUSCULAR VOLUME 89 fL (80-96); MONOCYTES # (AUTO) 0.6 K/uL (0.1-1.30); MONOCYTES % (AUTO) 8.5 % (2.0-12.0); NEUTROPHILS # (AUTO) 3.5 K/uL (1.8-8.9); NEUTROPHILS % (AUTO) 52.8 % (43.0-81.0); PLATELET COUNT (AUTO) 179 K/uL (150-450); RED CELL DISTRIBUTION WIDTH 14.8 % (11.5-15.0); WHITE BLOOD COUNT (AUTO) 6.6 K/uL (4.3-11.0)
[2024-01-12 07:59] LABS: CREATININE 0.8 mg/dL (0.6-1.3); MAGNESIUM 1.5 mg/dL (1.8-2.4); PHOSPHORUS 2.7 mg/dL (2.5-4.9); POTASSIUM 3.9 mmol/L (3.5-5.1)
[2024-01-12 08:00] VITALS: BP 139/64; TEMP 98; O2SAT 98
[2024-01-12 09:00] VITALS: BP 139/64
[2024-01-12] MEDS: CLOPIDOGREL BISULFATE 75 MG TABLET PO SCH (09:00)
[2024-01-12] MEDS: CARVEDILOL 6.25 MG TABLET PO SCH (09:00)
[2024-01-12] MEDS: DIVALPROEX SODIUM 250 MG TABLET.DR PO SCH (09:00)
[2024-01-12] MEDS: MULTIVITAMINS,THERAGRAN 1 UDTAB TABLET PO SCH (09:00)
[2024-01-12] MEDS: MAGNESIUM OXIDE 400 MG TABLET PO ONE (10:37)
[2024-01-12] MEDS ORDERED: risperiDONE 0.25 MG TABLET PO SCH (18:00)
[2024-01-12] MEDS ORDERED: ATORVASTATIN 10 MG TABLET PO SCH (22:00)
== END 2024-01-12 13:36 | DRG 71 ==
LOC: ER 22:21 → TELE1 01-08 01:15 → MEDSG1 01-11 16:17
PROVIDERS: ADMIT Nurse Practitioner Acute Care; ATTEND Nurse Practitioner Family
DX: G93.41 Metabolic encephalopathy (principal); D68.32 Hemorrhagic disorder due to extrinsic circulating anticoagulants; D68.59 Other primary thrombophilia; N39.0 Urinary tract infection, site not specified; T84.126A Displacement of internal fixation device of bone of right lower leg, initial encounter; R31.9 Hematuria, unspecified; D69.2 Other nonthrombocytopenic purpura; T45.515A Adverse effect of anticoagulants, initial encounter; Y92.9 Unspecified place or not applicable; Z20.822 Contact with and (suspected) exposure to COVID-19; E11.51 Type 2 diabetes mellitus with diabetic peripheral angiopathy without gangrene; F29 Unspecified psychosis not due to a substance or known physiological condition; Z79.84 Long term (current) use of oral hypoglycemic drugs; Z79.02 Long term (current) use of antithrombotics/antiplatelets; Z79.01 Long term (current) use of anticoagulants; F25.0 Schizoaffective disorder, bipolar type; Z98.890 Other specified postprocedural states; B96.89 Other specified bacterial agents as the cause of diseases classified elsewhere; Y83.8 Other surgical procedures as the cause of abnormal reaction of the patient, or of later complication, without mention of misadventure at the time of the procedure; Y92.129 Unspecified place in nursing home as the place of occurrence of the external cause; I25.10 Atherosclerotic heart disease of native coronary artery without angina pectoris; Z98.1 Arthrodesis status; I10 Essential (primary) hypertension; E88.09 Other disorders of plasma-protein metabolism, not elsewhere classified; D64.9 Anemia, unspecified; E78.5 Hyperlipidemia, unspecified
CPT/HCPCS: 36415; 70450-TC; 71045-TC; 73610-TC; 73700-TC; 80048-TC; 80076-TC; 81001; 82140-TC; 83735-TC; 84100-TC; 84484-TC; 85025-TC; 85730-TC; 87081-TC; 87086-TC; 97110-TC; 97116-TC; 97530-TC; A4223; G0378; G0480; J0696; J1650; J3490; J7030; J7042; J7060

== ENCOUNTER 2024-09-12 13:21 | Emergency (ER) | payer MEDICARE, OTHER ==
[~2024-09-12] VITALS: Ht 175.3 cm; Wt 88.5 kg
[~2024-09-12 13:21] MED LIST changes: +ACET325T53 PO; -ASCO-352 PO; -CHLO25TA2 PO; +DIVA250T PO; +IBUP-1953 PO; +INSU100V39 SQ; +MAG30ORA PO; +MAGN400O6 PO; +MELA5TAB PO; -MULT-447 PO; +MULT-594 PO; -OLOP5DRO EACHEYE; -OXYM30MI BNOSTRILS; +POLY15DR31 EACHEYE; +RISP0.2515 PO; -RISP0.5T5 PO; +TRAM50TA2 PO
[2024-09-12 14:44] LABS: BASOPHILS % (AUTO) 0.5 % (0.0-2.0); EOSINOPHILS # (AUTO) 0.2 K/uL (0.0-0.7); EOSINOPHILS % (AUTO) 4.4 % (0.0-6.0); HEMATOCRIT 38 % (39-51); HEMOGLOBIN 13.1 g/dL (13.5-17.5); LYMPHOCYTES # (AUTO) 2.2 K/uL (0.8-4.8); LYMPHOCYTES % (AUTO) 38.8 % (20.0-44.0); MEAN CORPUSCULAR HEMOGLOBIN 32 PG (26.0-33.0); MEAN CORPUSCULAR HGB CONC 34 g/dl (31.0-36.0); MEAN CORPUSCULAR VOLUME 93 fL (80-96); MONOCYTES # (AUTO) 0.5 K/uL (0.1-1.30); MONOCYTES % (AUTO) 8.9 % (2.0-12.0); NEUTROPHILS # (AUTO) 2.7 K/uL (1.8-8.9); NEUTROPHILS % (AUTO) 47.4 % (43.0-81.0); PLATELET COUNT (AUTO) 165 K/uL (150-450); RED BLOOD CELL COUNT(AUTO) 4.08 MIL/uL (4.5-6.0); WHITE BLOOD COUNT (AUTO) 5.7 K/uL (4.3-11.0)
[2024-09-12 14:56] LABS: CALCIUM, SERUM 8.6 mg/dL (8.5-10.1); CARBON DIOXIDE 28 mmol/L (21-32); CHLORIDE 104 mmol/L (98-107); CREATININE 0.9 mg/dL (0.6-1.3); GLUCOSE 123 mg/dL (74-106); POTASSIUM 4.8 mmol/L (3.5-5.1); SODIUM SERUM 138 mmol/L (136-145); UREA NITROGEN, BLOOD 16 mg/dL (7-18)
[2024-09-12 14:58] LABS: SERUM AMMONIA 7 umol/L (11-32)
[2024-09-12 15:01] LABS: INR 1.02 (0.91-1.10); PROTHROMBIN TIME 10.8 SECS (9.2-11.1)
[2024-09-12 15:02] LABS: ALANINE AMINOTRANSFERASE 9 U/L (12-78); ALBUMIN 3.1 g/dL (3.4-5.0); ALCOHOL, BLOOD < 3 mg/dL (0-10); ALKALINE PHOSPHATASE 64 U/L (46-116); ASPARTATE AMINOTRANSFERASE 8 U/L (15-37); BILIRUBIN,DIRECT 0.1 mg/dL (0.0-0.2); BILIRUBIN,TOTAL 0.2 mg/dL (0.2-1.0); TOTAL PROTEIN, SERUM 6.9 g/dL (6.4-8.2)
[2024-09-12 15:04] LABS: ACETAMINOPHEN 0 ug/ml (10-30); SALICYLATE 1.1 mg/dL (2.8-20.0)
[2024-09-12 15:39] LABS: APPEARANCE,URINE SLIGHTLY CLOUDY (CLEAR); BILIRUBIN,URINE NEGATIVE (NEGATIVE); BLOOD, URINE NEGATIVE Ery/uL (NEGATIVE); COLOR,URINE YELLOW (YELLOW); KETONES,URINE TRACE mg/dL (NEGATIVE); LEUKOCYTE ESTERASE ,URINE 2+ (NEGATIVE); NITRITE, URINE POSITIVE (NEGATIVE); PROTEIN,URINE NEGATIVE (NEGATIVE); UGLUCOSE NEGATIVE (NEGATIVE)
[2024-09-12 15:51] LABS: ADD URINE CULTURE YES; BACTERIA,URINE Many /HPF (None Seen); RBC,URINE 0-2 /HPF (0-2); SQUAMOUS EPITHELIAL CELL,UR None Seen /HPF (None Seen); WBC,URINE TOO NUMEROUS TO COUN /HPF (0-3)
[2024-09-12 16:06] LABS: AMPHETAMINE, URINE NEGATIVE (NEGATIVE); BARBITURATE, URINE NEGATIVE (NEGATIVE); BENZODIAZEPINE, URINE NEGATIVE (NEGATIVE); CANNABINOID, URINE NEGATIVE (NEGATIVE); COCCAINE, URINE NEGATIVE (NEGATIVE); OPIATE, URINE NEGATIVE (NEGATIVE); PHENCYCLIDINE SCREEN,URINE NEGATIVE (NEGATIVE)
[2024-09-12] MEDS ORDERED: CEFTRIAXONE 1GM BAG (ER ONLY) 50 ML IV ONE (17:49)
[2024-09-12] MEDS: CEFTRIAXONE 1 G VIAL IM ONE (17:52)
[2024-09-12] MEDS ORDERED: CEFP200T14 PO (18:25)
[2024-09-12 19:07] VITALS: BP 155/103; TEMP 98.7; O2SAT 96
== END 2024-09-12 19:07 | disposition home or self-care (01) ==
LOC: ER 13:23
DX: N39.0 Urinary tract infection, site not specified (principal); E11.51 Type 2 diabetes mellitus with diabetic peripheral angiopathy without gangrene; F20.9 Schizophrenia, unspecified; I10 Essential (primary) hypertension; R41.0 Disorientation, unspecified; F41.9 Anxiety disorder, unspecified; I25.2 Old myocardial infarction; Z79.01 Long term (current) use of anticoagulants; Z79.02 Long term (current) use of antithrombotics/antiplatelets; Z79.84 Long term (current) use of oral hypoglycemic drugs; Z79.899 Other long term (current) drug therapy; Z86.73 Personal history of transient ischemic attack (TIA), and cerebral infarction without residual deficits
CPT/HCPCS: 99285; 96365; 93005; 71045; 70450; 82140; 85025; 80048; 80076; 81001; 36415; 84439; 84443; 84484; 85730; 82962; 80143; 80320; 80307; J7030; J0696; G0480

== ENCOUNTER 2024-12-30 21:03 | Inpatient (IN) | payer MEDICARE, OTHER ==
[~2024-12-30] VITALS: Ht 177.8 cm; Wt 88.9 kg
[~2024-12-30 21:03] MED LIST changes: +CEFP200T14 PO
[2024-12-30 22:00] LABS: BASOPHILS # (AUTO) 0.1 K/uL (0.0-0.2); BASOPHILS % (AUTO) 0.9 % (0.0-2.0); EOSINOPHILS # (AUTO) 0.1 K/uL (0.0-0.7); EOSINOPHILS % (AUTO) 1.9 % (0.0-6.0); HEMATOCRIT 37 % (39-51); HEMOGLOBIN 12.7 g/dL (13.5-17.5); LYMPHOCYTES % (AUTO) 29.7 % (20.0-44.0); MEAN CORPUSCULAR HEMOGLOBIN 32 PG (26.0-33.0); MEAN CORPUSCULAR HGB CONC 35 g/dl (31.0-36.0); MEAN CORPUSCULAR VOLUME 91 fL (80-96); MONOCYTES # (AUTO) 0.6 K/uL (0.1-1.30); MONOCYTES % (AUTO) 8.5 % (2.0-12.0); PLATELET COUNT (AUTO) 152 K/uL (150-450); RED BLOOD CELL COUNT(AUTO) 4.03 MIL/uL (4.5-6.0); RED CELL DISTRIBUTION WIDTH 15.3 % (11.5-15.0); WHITE BLOOD COUNT (AUTO) 6.7 K/uL (4.3-11.0)
[2024-12-30 22:09] LABS: CALCIUM, SERUM 8.8 mg/dL (8.5-10.1); CARBON DIOXIDE 29 mmol/L (21-32); CHLORIDE 102 mmol/L (98-107); CREATININE 0.9 mg/dL (0.6-1.3); GLUCOSE 169 mg/dL (74-106); POTASSIUM 4.5 mmol/L (3.5-5.1); SODIUM SERUM 134 mmol/L (136-145); UREA NITROGEN, BLOOD 19 mg/dL (7-18)
[2024-12-30 22:19] LABS: ACETAMINOPHEN < 10 ug/ml (10-30); ALANINE AMINOTRANSFERASE 10 U/L (12-78); ALBUMIN 2.9 g/dL (3.4-5.0); ALKALINE PHOSPHATASE 53 U/L (46-116); ASPARTATE AMINOTRANSFERASE 8 U/L (15-37); BILIRUBIN,DIRECT 0.2 mg/dL (0.0-0.2); BILIRUBIN,TOTAL 0.5 mg/dL (0.2-1.0); SALICYLATE 0.9 mg/dL (2.8-20.0); TOTAL PROTEIN, SERUM 6.3 g/dL (6.4-8.2)
[2024-12-30 22:20] LABS: ALCOHOL, BLOOD < 3 mg/dL (0-10)
[2024-12-30] MEDS ORDERED: MAG HYDROX/AL HYDROX/SIMETH 30 ML UDC PO PRN (23:00)
[2024-12-30] MEDS ORDERED: MAGNESIUM HYDROXIDE 30 ML UDC PO PRN (23:00)
[2024-12-30] MEDS ORDERED: ONDANSETRON HCL/PF 4 MG/2 ML VIAL IVP PRN (23:00)
[2024-12-30] MEDS ORDERED: Z GUARD REMEDY 4 OZ OINT TP PRN (23:00)
[2024-12-30] MEDS: BLOOD SUGAR DIAGNOSTIC 1 EACH STRIP IN SCH (23:00)
[2024-12-30] MEDS ORDERED: DEXTROSE 50%-WATER 50 ML DISP.SYRIN IV PRN (23:00)
[2024-12-31] MEDS: IV NS 0.9% 1,000 ML IV PRN (04:51)
[2024-12-31 05:30] VITALS: BP 150/73; TEMP 97.5; O2SAT 96
[2024-12-31] MEDS: INSULIN REGULAR, HUMAN 100 UNIT/ML 3 ML VIAL SQ PRN (06:35)
[2024-12-31 07:18] LABS: BASOPHILS % (AUTO) 0.5 % (0.0-2.0); EOSINOPHILS # (AUTO) 0.1 K/uL (0.0-0.7); EOSINOPHILS % (AUTO) 2.3 % (0.0-6.0); HEMATOCRIT 37 % (39-51); HEMOGLOBIN 12.8 g/dL (13.5-17.5); LYMPHOCYTES # (AUTO) 1.9 K/uL (0.8-4.8); LYMPHOCYTES % (AUTO) 34.3 % (20.0-44.0); MEAN CORPUSCULAR HEMOGLOBIN 32 PG (26.0-33.0); MEAN CORPUSCULAR HGB CONC 35 g/dl (31.0-36.0); MEAN CORPUSCULAR VOLUME 90 fL (80-96); MONOCYTES # (AUTO) 0.4 K/uL (0.1-1.30); MONOCYTES % (AUTO) 7.8 % (2.0-12.0); NEUTROPHILS # (AUTO) 3.1 K/uL (1.8-8.9); NEUTROPHILS % (AUTO) 55.1 % (43.0-81.0); PLATELET COUNT (AUTO) 147 K/uL (150-450); RED BLOOD CELL COUNT(AUTO) 4.04 MIL/uL (4.5-6.0); WHITE BLOOD COUNT (AUTO) 5.7 K/uL (4.3-11.0)
[2024-12-31 07:38] LABS: CALCIUM, SERUM 8.6 mg/dL (8.5-10.1); CREATININE 0.7 mg/dL (0.6-1.3); MAGNESIUM 1.6 mg/dL (1.8-2.4); PHOSPHORUS 2.9 mg/dL (2.5-4.9)
[2024-12-31 08:00] VITALS: BP 149/68; TEMP 97.5; O2SAT 99
[2024-12-31 08:08] LABS: THYROID STIMULATING HORMONE 2.71 uIU/mL (0.358-3.74)
[2024-12-31] MEDS: PANTOPRAZOLE 40 MG TABLET.DR PO SCH (08:29)
[2024-12-31] MEDS ORDERED: GUAI100S9 PO (09:18)
[2024-12-31] MEDS ORDERED: NYST15CR TP (09:18)
[2024-12-31] MEDS ORDERED: AMIN30LI66 PO (09:18)
[2024-12-31] MEDS ORDERED: ZINC454O5 TP (09:18)
[2024-12-31] MEDS ORDERED: DIVA125T32 PO (09:18)
[2024-12-31] MEDS ORDERED: CRAN300T PO (09:18)
[2024-12-31] MEDS ORDERED: TRIA80CR12 TP (09:18)
[2024-12-31] MEDS: MAGNESIUM OXIDE 400 MG TABLET PO ONE (10:24)
[2024-12-31 16:00] VITALS: BP 154/60; TEMP 97.7; O2SAT 98
[2024-12-31 20:00] VITALS: BP 122/63; TEMP 98.1; O2SAT 98
[2025-01-01 04:00] VITALS: BP 133/75; TEMP 98; O2SAT 100
[2025-01-01 07:04] LABS: BASOPHILS % (AUTO) 0.2 % (0.0-2.0); EOSINOPHILS # (AUTO) 0.1 K/uL (0.0-0.7); EOSINOPHILS % (AUTO) 1.9 % (0.0-6.0); HEMATOCRIT 37 % (39-51); HEMOGLOBIN 13.3 g/dL (13.5-17.5); LYMPHOCYTES # (AUTO) 1.8 K/uL (0.8-4.8); LYMPHOCYTES % (AUTO) 27.3 % (20.0-44.0); MEAN CORPUSCULAR HEMOGLOBIN 32 PG (26.0-33.0); MEAN CORPUSCULAR HGB CONC 36 g/dl (31.0-36.0); MEAN CORPUSCULAR VOLUME 90 fL (80-96); MONOCYTES # (AUTO) 0.5 K/uL (0.1-1.30); MONOCYTES % (AUTO) 8.4 % (2.0-12.0); NEUTROPHILS % (AUTO) 62.2 % (43.0-81.0); PLATELET COUNT (AUTO) 153 K/uL (150-450); RED BLOOD CELL COUNT(AUTO) 4.13 MIL/uL (4.5-6.0); RED CELL DISTRIBUTION WIDTH 15.2 % (11.5-15.0); WHITE BLOOD COUNT (AUTO) 6.5 K/uL (4.3-11.0)
[2025-01-01 07:06] LABS: ALBUMIN 2.9 g/dL (3.4-5.0); BILIRUBIN,TOTAL 0.6 mg/dL (0.2-1.0); CALCIUM, SERUM 8.5 mg/dL (8.5-10.1); CREATININE 0.6 mg/dL (0.6-1.3); MAGNESIUM 1.8 mg/dL (1.8-2.4); PHOSPHORUS 3.2 mg/dL (2.5-4.9); POTASSIUM 4.4 mmol/L (3.5-5.1); TOTAL PROTEIN, SERUM 6.3 g/dL (6.4-8.2)
[2025-01-01 12:22] VITALS: BP 136/60; TEMP 98.2; O2SAT 98
[2025-01-01] MEDS ORDERED: POLYVINYL ALCOHOL 15 ML BOTTLE EACHEYE PRN (14:00)
[2025-01-01] MEDS: risperiDONE 0.25 MG TABLET PO SCH (17:07)
[2025-01-01] MEDS: METFORMIN 500 MG TABLET PO SCH (17:07)
[2025-01-01] MEDS: APIXABAN 5 MG TABLET PO SCH (17:08)
[2025-01-01] MEDS: DIVALPROEX SODIUM 250 MG TABLET.DR PO SCH (17:08)
[2025-01-01] MEDS: CARVEDILOL 6.25 MG TABLET PO SCH (17:08)
[2025-01-01 20:00] VITALS: BP 135/69; TEMP 97.3; O2SAT 97
[2025-01-01] MEDS: ATORVASTATIN 10 MG TABLET PO SCH (22:44)
[2025-01-02 04:00] VITALS: BP 141/70; TEMP 97.9; O2SAT 98
[2025-01-02] MEDS: ACETAMINOPHEN 325 MG TABLET PO PRN (06:47)
[2025-01-02] MEDS: MULTIVITAMINS,THERAGRAN 1 UDTAB TABLET PO SCH (08:45)
[2025-01-02] MEDS: CLOPIDOGREL BISULFATE 75 MG TABLET PO SCH (08:45)
[2025-01-02] MEDS: LISINOPRIL (5MG) 5 MG TABLET PO SCH (08:46)
[2025-01-02] MEDS: DIVALPROEX SODIUM 125 MG TABLET.DR PO SCH (08:56)
[2025-01-02] MEDS: GLIMEPIRIDE 4 MG TABLET PO SCH (09:57)
[2025-01-02] MEDS: ZINC OXIDE 56.7 GM TUBE TP SCH (11:03)
[2025-01-02] MEDS: NYSTATIN CREAM 15 GM TUBE TP SCH (11:04)
[2025-01-02] MEDS: TRIAMCINOLONE ACETONIDE 0.1% CR 15 GM TUBE TP SCH (11:05)
[2025-01-02 11:43] VITALS: BP 134/76; TEMP 97.8; O2SAT 97
[2025-01-02 11:45] VITALS: BP 134/76; TEMP 97.8; O2SAT 97
[2025-01-02 12:00] VITALS: BP 146/99; TEMP 97.5; O2SAT 97
[2025-01-02 20:00] VITALS: BP 127/69; TEMP 98.1; O2SAT 97
[2025-01-03 04:00] VITALS: BP 124/67; TEMP 98.2; O2SAT 96
[2025-01-03 07:59] LABS: BASOPHILS % (AUTO) 0.3 % (0.0-2.0); EOSINOPHILS # (AUTO) 0.2 K/uL (0.0-0.7); EOSINOPHILS % (AUTO) 2.5 % (0.0-6.0); HEMATOCRIT 36 % (39-51); LYMPHOCYTES % (AUTO) 32.8 % (20.0-44.0); MEAN CORPUSCULAR HEMOGLOBIN 32 PG (26.0-33.0); MEAN CORPUSCULAR HGB CONC 36 g/dl (31.0-36.0); MEAN CORPUSCULAR VOLUME 90 fL (80-96); MONOCYTES # (AUTO) 0.5 K/uL (0.1-1.30); MONOCYTES % (AUTO) 8.9 % (2.0-12.0); NEUTROPHILS # (AUTO) 3.3 K/uL (1.8-8.9); NEUTROPHILS % (AUTO) 55.5 % (43.0-81.0); PLATELET COUNT (AUTO) 144 K/uL (150-450); RED BLOOD CELL COUNT(AUTO) 4.03 MIL/uL (4.5-6.0); RED CELL DISTRIBUTION WIDTH 15.3 % (11.5-15.0)
[2025-01-03 08:33] LABS: CALCIUM, SERUM 8.4 mg/dL (8.5-10.1); CREATININE 0.7 mg/dL (0.6-1.3); MAGNESIUM 1.7 mg/dL (1.8-2.4); PHOSPHORUS 2.6 mg/dL (2.5-4.9); POTASSIUM 4.6 mmol/L (3.5-5.1)
[2025-01-03 12:00] VITALS: BP 139/84; TEMP 97.9; O2SAT 96
[2025-01-03] MEDS: MAGNESIUM OXIDE 400 MG TABLET PO ONE (12:25)
[2025-01-03 18:12] VITALS: BP 165/90
[2025-01-03] MEDS: hydrALAZINE HCL IV 20 MG VIAL IV ONE (18:12)
== END 2025-01-03 18:44 | DRG 641 ==
LOC: ER 21:05 → MEDSG1 12-31 04:23
PROVIDERS: ADMIT Nurse Practitioner Family; ATTEND Nurse Practitioner Acute Care
DX: E86.0 Dehydration (principal); E44.0 Moderate protein-calorie malnutrition; R62.7 Adult failure to thrive; E11.51 Type 2 diabetes mellitus with diabetic peripheral angiopathy without gangrene; F25.9 Schizoaffective disorder, unspecified; F39 Unspecified mood [affective] disorder; Z20.822 Contact with and (suspected) exposure to COVID-19; I25.10 Atherosclerotic heart disease of native coronary artery without angina pectoris; I10 Essential (primary) hypertension; Z86.16 Personal history of COVID-19; E88.09 Other disorders of plasma-protein metabolism, not elsewhere classified; E78.5 Hyperlipidemia, unspecified; Z79.4 Long term (current) use of insulin; Z79.84 Long term (current) use of oral hypoglycemic drugs; I48.91 Unspecified atrial fibrillation; F29 Unspecified psychosis not due to a substance or known physiological condition; F41.9 Anxiety disorder, unspecified; Z98.890 Other specified postprocedural states; Z79.02 Long term (current) use of antithrombotics/antiplatelets; Z79.899 Other long term (current) drug therapy; Z79.01 Long term (current) use of anticoagulants; R26.9 Unspecified abnormalities of gait and mobility; R79.89 Other specified abnormal findings of blood chemistry; E66.9 Obesity, unspecified; Z68.30 Body mass index [BMI] 30.0-30.9, adult; G47.00 Insomnia, unspecified; E87.1 Hypo-osmolality and hyponatremia; D64.9 Anemia, unspecified; M10.9 Gout, unspecified
CPT/HCPCS: 36415; 80048-TC; 80053-TC; 80076-TC; 82962-TC; 83735-TC; 84100-TC; 84443-TC; 85025-TC; 87081-TC; 97110-TC; 97116-TC; 97530-TC; A4223; G0378; G0480; J0360; J1815; J7030